=== PATIENT | female | born 1975 | race Hispanic/Latino ===

== ENCOUNTER 2018-01-14 15:34 | Emergency (ER) | payer SELFPAY ==
[~2018-01-14 15:34] MED LIST: FENO145T PO; SIMV20TA6 PO
[2018-01-14] MEDS ORDERED: SODIUM CHLORIDE 0.9% 1000ML 1,000 ML IV ONE (16:18)
[2018-01-14] MEDS ORDERED: KETOROLAC TROMETHAMINE 30MG/ML ONE (16:19)
[2018-01-14 16:31] LABS: BASOPHILS % (AUTO) 0.6 % (0.0-5.0); EOSINOPHILS % (AUTO) 2.4 % (0.0-8.0); HEMATOCRIT 34.6 % (36-48); LYMPHOCYTES % (AUTO) 33.8 % (21.0-51.0); MEAN CORPUSCULAR HEMOGLOBIN 29.1 pg (27.0-33.0); MEAN CORPUSCULAR HGB CONC 34.7 g/dL (32.0-36.0); MEAN CORPUSCULAR VOLUME 83.9 fL (79-99); MONOCYTES % (AUTO) 6.6 % (3.0-13.0); NEUTROPHILS % (AUTO) 56.6 % (40.0-77.0); PLATELET COUNT (AUTO) 310 K/uL (130-400); RED BLOOD CELL COUNT(AUTO) 4.12 MIL/uL (4.00-5.50); RED CELL DISTRIBUTION WIDTH 14.8 % (11.0-15.5); WHITE BLOOD COUNT (AUTO) 9.8 K/uL (4.8-10.8)
[2018-01-14 16:32] LABS: APPEARANCE,URINE Clear (CLEAR); BILIRUBIN,URINE Negative (NEGATIVE); COLOR,URINE Yellow (YELLOW); GLUCOSE, URINE (UA) Negative (NEGATIVE); HCG,QUAL RESULT NEGATIVE (NEGATIVE); KETONES,URINE Negative (NEGATIVE); LEUKOCYTE ESTERASE ,URINE Negative (NEGATIVE); NITRATE,URINE Negative (NEGATIVE); OCCULT BLOOD,URINE Negative (NEGATIVE); PH,URINE 5.5 (5.0-8.0); PROTEIN,URINE Negative (NEGATIVE); UROBILINOGEN,URINE 0.2 mg/dL (0.2-1.0)
[2018-01-14 16:39] LABS: CREATININE 0.8 mg/dL (0.5-1.5); POTASSIUM 3.6 mmol/L (3.5-5.1)
[2018-01-14 16:44] LABS: ALBUMIN 3.4 g/dL (3.5-5.0); BILIRUBIN,TOTAL 0.2 mg/dL (0.2-1.0); TOTAL PROTEIN, SERUM 7.3 g/dL (6.0-8.3)
[2018-01-14] MEDS ORDERED: CEFTRIAXONE SODIUM 500 MG VIAL ONE (17:53)
[2018-01-14] MEDS ORDERED: AZITHROMYCIN 250 MG TABLET PO ONE (17:54)
== END 2018-01-14 18:55 | disposition home or self-care (01) ==
LOC: EDH 15:34
DX: N73.9 Female pelvic inflammatory disease, unspecified (principal); K21.9 Gastro-esophageal reflux disease without esophagitis; Z72.0 Tobacco use
CPT/HCPCS: 36415; 76856; 80053; 81003; 81025; 83690; 85025; 87486; 87797; 96372; 96374; 99285; J0696; J1885; J7030

== ENCOUNTER 2018-01-24 08:34 | Emergency (ER) | payer OTHER ==
[2018-01-24] MEDS ORDERED: CLINDAMYCIN HCL 150 MG CAP ONE (08:50)
== END 2018-01-24 09:22 | disposition home or self-care (01) ==
LOC: EDH 08:34
DX: K04.7 Periapical abscess without sinus (principal); K21.9 Gastro-esophageal reflux disease without esophagitis; Z72.0 Tobacco use

== ENCOUNTER 2021-07-19 07:35 | Emergency (ER) | payer OTHER ==
[~2021-07-19] VITALS: Ht 165.1 cm; Wt 77.6 kg
[~2021-07-19 07:35] MED LIST changes: +SIMV-43 PO; -SIMV20TA6 PO
[2021-07-19] MEDS ORDERED: TETRACAINE HCL 0.5% 4 ML OPHTH SOLN ONE (07:55)
[2021-07-19] MEDS ORDERED: TOBR5DRO7 OP (08:59)
[2021-07-19] MEDS ORDERED: IBUP-2070 PO (08:59)
[2021-07-19 09:00] VITALS: BP 120/78
== END 2021-07-19 09:07 | disposition home or self-care (01) ==
LOC: EDH 07:35
DX: S05.01XA Injury of conjunctiva and corneal abrasion without foreign body, right eye, initial encounter (principal); Z79.899 Other long term (current) drug therapy; Z90.49 Acquired absence of other specified parts of digestive tract; X58.XXXA Exposure to other specified factors, initial encounter; Y93.89 Activity, other specified; Y92.89 Other specified places as the place of occurrence of the external cause; Y99.8 Other external cause status

== ENCOUNTER 2022-04-18 06:38 | Inpatient (IN) | payer OTHER ==
[2022-04-18] VITALS (9 sets, daily range): BP systolic 87–133; BP diastolic 53–84
[~2022-04-18] VITALS: Ht 160 cm; Wt 79.4 kg
[~2022-04-18 06:38] MED LIST changes: +IBUP-2070 PO; +TOBR5DRO7 OP
[2022-04-18] MEDS ORDERED: ONDANSETRON 4MG INJ ONE (06:42)
[2022-04-18] MEDS ORDERED: MORPHINE 4 MG SYG ONE (06:42)
[2022-04-18] MEDS ORDERED: KETOROLAC 15MG/ML VIAL (15MG/ML) IV ONE (07:00)
[2022-04-18] MEDS ORDERED: ONDANSETRON 4MG INJ IVP ONE (07:00)
[2022-04-18] MEDS ORDERED: MORPHINE 4 MG SYG IVP ONE ×2 (07:00→09:00)
[2022-04-18 07:02] LABS: BASOPHILS % (AUTO) 0.4 % (0.0-5.0); EOSINOPHILS % (AUTO) 2.2 % (0.0-8.0); HEMATOCRIT 43.4 % (36-48); MEAN CORPUSCULAR HEMOGLOBIN 33.1 pg (27.0-33.0); MEAN CORPUSCULAR HGB CONC 37.3 g/dL (32.0-36.0); MEAN CORPUSCULAR VOLUME 88.6 fL (79-99); MONOCYTES % (AUTO) 3.3 % (3.0-13.0); NEUTROPHILS % (AUTO) 72.6 % (40.0-77.0); PLATELET COUNT (AUTO) 350 K/uL (130-400); RED CELL DISTRIBUTION WIDTH 12.7 % (11.0-15.5); WHITE BLOOD COUNT (AUTO) 14.7 K/uL (4.8-10.8)
[2022-04-18 07:22] LABS: POTASSIUM 3.5 mmol/L (3.5-5.1)
[2022-04-18 07:48] LABS: ABG BASE EXCESS -2.8 mmol/L (-2.0-3.0); ABG HCO3 21.1 mmol/L (21.0-28.0); ABG OXYGEN SATURATION 94.7 % (95.0-99.0); ABG PCO2 34 mmHg (32-45)
[2022-04-18] MEDS ORDERED: 0.9%NACL 1000ML 1,000 ML IV ONE (08:08)
[2022-04-18 08:29] LABS: CREATININE 0.8 mg/dL (0.5-1.5)
[2022-04-18 08:30] LABS: TOTAL PROTEIN, SERUM 8.1 g/dL (6.0-8.3)
[2022-04-18] MEDS ORDERED: INSULIN REGULAR, HUMAN 3ML 100 UNIT in 0.9%NACL 100ML 99 ML IV SCH ×2 (11:30)
[2022-04-18] MEDS ORDERED: 0.9%NACL 1000ML 1,000 ML IV SCH (11:30)
[2022-04-18] MEDS ORDERED: INSULIN REGULAR, HUMAN 3ML 100 UNIT in 0.9%NACL 100ML 99 ML IV PRN ×2 (12:00)
[2022-04-18] MEDS: MORPHINE 2 MG SYG IVP PRN ×2 (12:03→16:12)
[2022-04-18] MEDS ORDERED: PHARMACY COMMUNICATION MISC SCH (13:30)
[2022-04-18] MEDS ORDERED: SODIUM BICARB 8.4% 50ML SYRINGE IVP SCH (13:30)
[2022-04-18] MEDS ORDERED: METF-444 PO (13:55)
[2022-04-18] MEDS ORDERED: CAPT25TA3 PO (13:55)
[2022-04-18] MEDS: [UNRECOGNIZED DRUG - MIXTURE] IVP SCH ×2 (14:07→20:17)
[2022-04-18] MEDS: DEXTROSE 10%-WATER 1,000 ML IV SCH ×2 (14:20→18:42)
[2022-04-18 17:12] LABS: APPEARANCE,URINE CLEAR (CLEAR); BILIRUBIN,URINE NEGATIVE (NEGATIVE); COLOR,URINE YELLOW (YELLOW); GLUCOSE, URINE (UA) 500 mg/dL (NEGATIVE); KETONES,URINE 40 mg/dL (NEGATIVE); LEUKOCYTE ESTERASE ,URINE NEGATIVE (NEGATIVE); NITRATE,URINE NEGATIVE (NEGATIVE); OCCULT BLOOD,URINE NEGATIVE (NEGATIVE); PROTEIN,URINE TRACE mg/dL (NEGATIVE); UROBILINOGEN,URINE 0.2 mg/dL (0.2-1.0)
[2022-04-18 17:22] LABS: HCG,QUALITATIVE URINE NEGATIVE (NEGATIVE)
[2022-04-18 17:23] LABS: BACTERIA,URINE Few /HPF (None Seen); RBC,URINE 0-1 /HPF (0-1)
[2022-04-18 17:24] LABS: MUCUS,URINE Moderate LPF (None Seen); SQUAMOUS EPITHELIAL CELL,UR Moderate /HPF (0-2)
[2022-04-18 18:32] LABS: CREATININE 0.8 mg/dL (0.5-1.5)
[2022-04-18] MEDS: HYDROMORPHONE 1 MG INJ IVP PRN ×2 (18:57→23:39)
[2022-04-18] MEDS: FAMOTIDINE 20MG VIAL IV SCH (19:52)
[2022-04-18] MEDS: ATORVASTATIN 40 MG TABLET PO SCH (19:53)
[2022-04-18] MEDS: FENOFIBRATE NANOCRYSTALLIZED 145 MG TAB PO SCH (20:17)
[2022-04-18] MEDS: INSULIN REGULAR, HUMAN 3ML 100 UNIT in 0.9%NACL 100ML 99 ML IV SCH ×2 (22:27)
[2022-04-18] MEDS: ZOSYN 3.375GM +NS 50ML IV SCH (23:39)
[2022-04-18 23:47] LABS: CREATININE 1.4 mg/dL (0.5-1.5)
[2022-04-19] VITALS (41 sets, daily range): BP systolic 75–126; BP diastolic 43–84
[2022-04-19] MEDS ORDERED: NOREPINEPHRIN 4MG/NS 250ML 250 ML IV SCH
[2022-04-19] MEDS: LIDOCAINE HCL-MPF 1% 2ML VIAL IV PRN ×3 (00:23→18:12)
[2022-04-19] MEDS: POTASSIUM CHLORIDE 20MEQ/100ML 100 ML IV PRN ×4 (00:33→18:12)
[2022-04-19] MEDS: ACETAMINOPHEN 325 MG TAB PO PRN ×2 (01:06→16:32)
[2022-04-19 03:43] LABS: BASOPHILS % (AUTO) 0.4 % (0.0-5.0); EOSINOPHILS % (AUTO) 0.6 % (0.0-8.0); HEMATOCRIT 37.7 % (36-48); LYMPHOCYTES % (AUTO) 19.2 % (21.0-51.0); MEAN CORPUSCULAR HEMOGLOBIN 29.9 pg (27.0-33.0); MEAN CORPUSCULAR HGB CONC 34.2 g/dL (32.0-36.0); MEAN CORPUSCULAR VOLUME 87.3 fL (79-99); MONOCYTES % (AUTO) 4.7 % (3.0-13.0); NEUTROPHILS % (AUTO) 74.8 % (40.0-77.0); PLATELET COUNT (AUTO) 292 K/uL (130-400); RED BLOOD CELL COUNT(AUTO) 4.32 MIL/uL (4.00-5.50); WHITE BLOOD COUNT (AUTO) 10.3 K/uL (4.8-10.8)
[2022-04-19 04:12] LABS: ALBUMIN 2.5 g/dL (3.5-5.0); CREATININE 1.8 mg/dL (0.5-1.5); POTASSIUM 3.6 mmol/L (3.5-5.1); TOTAL PROTEIN, SERUM 6.2 g/dL (6.0-8.3)
[2022-04-19 04:56] LABS: BILIRUBIN,DIRECT 0.2 mg/dL (0.0-0.3)
[2022-04-19] MEDS: ZOSYN 3.375GM +NS 50ML IV SCH ×2 (06:30→13:31)
[2022-04-19] MEDS: FAMOTIDINE 20MG VIAL IV SCH (08:29)
[2022-04-19] MEDS: ENOXAPARIN SODIUM 30 MG/0.3 ML SQ SCH (08:30)
[2022-04-19] MEDS ORDERED: 0.9%NACL 1000ML 1,000 ML IV SCH ×2 (10:00→11:30)
[2022-04-19] MEDS: DEXTROSE 10%-WATER 1,000 ML IV SCH ×2 (10:03→19:31)
[2022-04-19 11:03] LABS: CREATININE 2.4 mg/dL (0.5-1.5)
[2022-04-19 11:46] LABS: POTASSIUM 2.9 mmol/L (3.5-5.1)
[2022-04-19] MEDS ORDERED: MAGNESIUM 2GM PREMIX 50ML 50 ML IV ONE (11:58)
[2022-04-19] MEDS: POTASSIUM CHLORIDE 10MEQ/100ML 100 ML IV PRN (11:58)
[2022-04-19] MEDS: MAGNESIUM 2GM PREMIX 50ML 50 ML IV PRN ×2 (12:00→13:29)
[2022-04-19] MEDS: HYDROMORPHONE 1 MG INJ IVP PRN ×3 (12:03→23:48)
[2022-04-19] MEDS ORDERED: RENAL DOSE IV PRN (12:30)
[2022-04-19] MEDS: 0.9%NACL 1000ML 1,000 ML IV SCH ×3 (13:29→22:50)
[2022-04-19 17:45] LABS: CREATININE 2.5 mg/dL (0.5-1.5); POTASSIUM 3.3 mmol/L (3.5-5.1)
[2022-04-19] MEDS: INSULIN REGULAR, HUMAN 3ML 100 UNIT in 0.9%NACL 100ML 99 ML IV SCH ×2 (18:11)
[2022-04-19] MEDS: ATORVASTATIN 40 MG TABLET PO SCH ×2 (20:50→21:09)
[2022-04-19] MEDS: FENOFIBRATE NANOCRYSTALLIZED 145 MG TAB PO SCH ×2 (20:51→21:10)
[2022-04-19 23:16] LABS: CREATININE 2.6 mg/dL (0.5-1.5); MAGNESIUM 2.1 mg/dL (1.80-2.40); POTASSIUM 3.1 mmol/L (3.5-5.1)
[2022-04-20] VITALS (35 sets, daily range): BP systolic 100–148; BP diastolic 51–97
[2022-04-20] MEDS: LIDOCAINE HCL-MPF 1% 2ML VIAL IV PRN ×5 (00:01→13:19)
[2022-04-20] MEDS: POTASSIUM CHLORIDE 10MEQ/100ML 100 ML IV PRN ×3 (00:01→05:59)
[2022-04-20] MEDS: ZOSYN 3.375GM +NS 50ML IV SCH ×2 (00:33→12:11)
[2022-04-20] MEDS: 0.9%NACL 1000ML 1,000 ML IV SCH ×4 (03:29→17:36)
[2022-04-20] MEDS: DEXTROSE 10%-WATER 1,000 ML IV SCH (03:30)
[2022-04-20] MEDS: INSULIN REGULAR, HUMAN 3ML 100 UNIT in 0.9%NACL 100ML 99 ML IV SCH ×2 (03:48)
[2022-04-20 05:14] LABS: BASOPHILS % (AUTO) 0.3 % (0.0-5.0); EOSINOPHILS % (AUTO) 2.4 % (0.0-8.0); HEMATOCRIT 31.1 % (36-48); LYMPHOCYTES % (AUTO) 13.8 % (21.0-51.0); MEAN CORPUSCULAR HEMOGLOBIN 29.8 pg (27.0-33.0); MEAN CORPUSCULAR HGB CONC 33.8 g/dL (32.0-36.0); MEAN CORPUSCULAR VOLUME 88.4 fL (79-99); MONOCYTES % (AUTO) 6.2 % (3.0-13.0); NEUTROPHILS % (AUTO) 76.8 % (40.0-77.0); PLATELET COUNT (AUTO) 210 K/uL (130-400); RED BLOOD CELL COUNT(AUTO) 3.52 MIL/uL (4.00-5.50); RED CELL DISTRIBUTION WIDTH 13.6 % (11.0-15.5); WHITE BLOOD COUNT (AUTO) 10.5 K/uL (4.8-10.8)
[2022-04-20 05:24] LABS: CREATININE 2.5 mg/dL (0.5-1.5); PHOSPHORUS 2.4 mg/dL (2.5-4.9); POTASSIUM 3.2 mmol/L (3.5-5.1)
[2022-04-20] MEDS: ACETAMINOPHEN 325 MG TAB PO PRN ×3 (05:59→19:56)
[2022-04-20] MEDS: ENOXAPARIN SODIUM 30 MG/0.3 ML SQ SCH (08:16)
[2022-04-20] MEDS: POTASSIUM CHLORIDE 20MEQ/100ML 100 ML IV PRN ×2 (08:17→13:19)
[2022-04-20] MEDS: FAMOTIDINE 20MG VIAL IV SCH (08:17)
[2022-04-20 09:10] LABS: HEMOGLOBIN A1C 9.7 % (4.0-6.0)
[2022-04-20] MEDS: INSULIN HUMULIN R 100 UNIT/ML 3ML SQ SCH ×3 (11:17→20:53)
[2022-04-20] MEDS: HYDROMORPHONE 1 MG INJ IVP PRN ×4 (12:11→23:50)
[2022-04-20 12:15] LABS: CREATININE 2.3 mg/dL (0.5-1.5); POTASSIUM 3.8 mmol/L (3.5-5.1)
[2022-04-20] MEDS ORDERED: GLUCAGON 1MG KIT 1 MG ML IM PRN (21:30)
[2022-04-20] MEDS ORDERED: DEXTROSE 50%-WATER 50 ML DISP.SYRIN IV PRN (21:30)
[2022-04-21] VITALS (21 sets, daily range): BP systolic 122–177; BP diastolic 75–107
[2022-04-21] MEDS: ZOSYN 3.375GM +NS 50ML IV SCH ×2 (00:07→11:40)
[2022-04-21] MEDS: 0.9%NACL 1000ML 1,000 ML IV SCH ×3 (00:11→21:54)
[2022-04-21 03:37] LABS: BASOPHILS % (AUTO) 0.4 % (0.0-5.0); EOSINOPHILS % (AUTO) 1.7 % (0.0-8.0); HEMATOCRIT 32.1 % (36-48); LYMPHOCYTES % (AUTO) 11.3 % (21.0-51.0); MEAN CORPUSCULAR HEMOGLOBIN 30.1 pg (27.0-33.0); MEAN CORPUSCULAR HGB CONC 33.3 g/dL (32.0-36.0); MEAN CORPUSCULAR VOLUME 90.2 fL (79-99); MONOCYTES % (AUTO) 6.9 % (3.0-13.0); NEUTROPHILS % (AUTO) 79.2 % (40.0-77.0); PLATELET COUNT (AUTO) 255 K/uL (130-400); RED BLOOD CELL COUNT(AUTO) 3.56 MIL/uL (4.00-5.50); RED CELL DISTRIBUTION WIDTH 13.6 % (11.0-15.5); WHITE BLOOD COUNT (AUTO) 11.4 K/uL (4.8-10.8)
[2022-04-21] MEDS: ACETAMINOPHEN 325 MG TAB PO PRN (03:44)
[2022-04-21 03:45] LABS: ALBUMIN 2.1 g/dL (3.5-5.0); CREATININE 1.9 mg/dL (0.5-1.5); MAGNESIUM 1.8 mg/dL (1.80-2.40); PHOSPHORUS 3.1 mg/dL (2.5-4.9); POTASSIUM 4.1 mmol/L (3.5-5.1)
[2022-04-21] MEDS: HYDROMORPHONE 1 MG INJ IVP PRN ×6 (04:38→20:48)
[2022-04-21 04:53] LABS: APPEARANCE,URINE CLEAR (CLEAR); BILIRUBIN,URINE NEGATIVE (NEGATIVE); COLOR,URINE YELLOW (YELLOW); GLUCOSE, URINE (UA) NEGATIVE (NEGATIVE); KETONES,URINE NEGATIVE (NEGATIVE); LEUKOCYTE ESTERASE ,URINE NEGATIVE (NEGATIVE); NITRATE,URINE NEGATIVE (NEGATIVE); OCCULT BLOOD,URINE SMALL (NEGATIVE); PROTEIN,URINE NEGATIVE (NEGATIVE); UROBILINOGEN,URINE 0.2 mg/dL (0.2-1.0)
[2022-04-21 05:11] LABS: BACTERIA,URINE None Seen /HPF (None Seen); RBC,URINE 0-1 /HPF (0-1); SQUAMOUS EPITHELIAL CELL,UR Rare /HPF (0-2); WBC,URINE None Seen /HPF (0-1)
[2022-04-21] MEDS: MAGNESIUM 2GM PREMIX 50ML 50 ML IV PRN (06:30)
[2022-04-21] MEDS: INSULIN HUMULIN R 100 UNIT/ML 3ML SQ SCH ×4 (06:30→20:58)
[2022-04-21] MEDS: FAMOTIDINE 20MG VIAL IV SCH (08:02)
[2022-04-21] MEDS: ENOXAPARIN SODIUM 30 MG/0.3 ML SQ SCH (08:03)
[2022-04-21] MEDS: ATORVASTATIN 40 MG TABLET PO SCH (20:23)
[2022-04-21] MEDS: FENOFIBRATE NANOCRYSTALLIZED 145 MG TAB PO SCH (20:26)
[2022-04-21] MEDS: MORPHINE 2 MG SYG IVP PRN (23:02)
[2022-04-22] VITALS (8 sets, daily range): BP systolic 120–161; BP diastolic 79–108
[2022-04-22] MEDS: ZOSYN 3.375GM +NS 50ML IV SCH ×2 (00:58→12:32)
[2022-04-22 03:34] LABS: BASOPHILS % (AUTO) 0.3 % (0.0-5.0); EOSINOPHILS % (AUTO) 1.6 % (0.0-8.0); HEMATOCRIT 37.1 % (36-48); LYMPHOCYTES % (AUTO) 14.7 % (21.0-51.0); MEAN CORPUSCULAR HEMOGLOBIN 29.7 pg (27.0-33.0); MEAN CORPUSCULAR HGB CONC 32.9 g/dL (32.0-36.0); MEAN CORPUSCULAR VOLUME 90.3 fL (79-99); MONOCYTES % (AUTO) 8.8 % (3.0-13.0); NEUTROPHILS % (AUTO) 74.2 % (40.0-77.0); PLATELET COUNT (AUTO) 320 K/uL (130-400); RED BLOOD CELL COUNT(AUTO) 4.11 MIL/uL (4.00-5.50); RED CELL DISTRIBUTION WIDTH 13.4 % (11.0-15.5); WHITE BLOOD COUNT (AUTO) 11.5 K/uL (4.8-10.8)
[2022-04-22 03:46] LABS: CREATININE 1.5 mg/dL (0.5-1.5); PHOSPHORUS 3.3 mg/dL (2.5-4.9); POTASSIUM 3.3 mmol/L (3.5-5.1)
[2022-04-22] MEDS: INSULIN HUMULIN R 100 UNIT/ML 3ML SQ SCH ×4 (06:14→21:00)
[2022-04-22] MEDS: 0.9%NACL 1000ML 1,000 ML IV SCH ×2 (08:00→20:41)
[2022-04-22] MEDS: FAMOTIDINE 20MG VIAL IV SCH (09:28)
[2022-04-22] MEDS: ENOXAPARIN SODIUM 30 MG/0.3 ML SQ SCH (09:51)
[2022-04-22] MEDS: HYDROMORPHONE 1 MG INJ IVP PRN ×3 (10:01→20:41)
[2022-04-22] MEDS: MORPHINE 2 MG SYG IVP PRN (13:44)
[2022-04-22] MEDS: ACETAMINOPHEN 325 MG TAB PO PRN (16:17)
[2022-04-22] MEDS: FENOFIBRATE NANOCRYSTALLIZED 145 MG TAB PO SCH (20:40)
[2022-04-22] MEDS: ATORVASTATIN 40 MG TABLET PO SCH (20:40)
[2022-04-23] VITALS: BP 153/93
[2022-04-23] MEDS: ZOSYN 3.375GM +NS 50ML IV SCH ×2 (01:00→11:57)
[2022-04-23 04:00] VITALS: BP 158/93
[2022-04-23] MEDS: MORPHINE 2 MG SYG IVP PRN (04:08)
[2022-04-23 06:14] LABS: BASOPHILS % (AUTO) 0.3 % (0.0-5.0); EOSINOPHILS % (AUTO) 1.8 % (0.0-8.0); LYMPHOCYTES % (AUTO) 11.5 % (21.0-51.0); MEAN CORPUSCULAR HEMOGLOBIN 29.2 pg (27.0-33.0); MEAN CORPUSCULAR HGB CONC 33.3 g/dL (32.0-36.0); MEAN CORPUSCULAR VOLUME 87.7 fL (79-99); MONOCYTES % (AUTO) 9.6 % (3.0-13.0); NEUTROPHILS % (AUTO) 75.6 % (40.0-77.0); PLATELET COUNT (AUTO) 320 K/uL (130-400); RED BLOOD CELL COUNT(AUTO) 3.42 MIL/uL (4.00-5.50); RED CELL DISTRIBUTION WIDTH 13.1 % (11.0-15.5); WHITE BLOOD COUNT (AUTO) 11.8 K/uL (4.8-10.8)
[2022-04-23] MEDS: INSULIN HUMULIN R 100 UNIT/ML 3ML SQ SCH ×4 (06:18→20:29)
[2022-04-23 06:33] LABS: ALBUMIN 2.1 g/dL (3.5-5.0); CREATININE 1.2 mg/dL (0.5-1.5); TOTAL PROTEIN, SERUM 6.4 g/dL (6.0-8.3)
[2022-04-23 06:49] LABS: POTASSIUM 2.8 mmol/L (3.5-5.1)
[2022-04-23 07:25] VITALS: BP 153/96
[2022-04-23 08:13] LABS: CRP QUANTITATIVE 246.4 mg/L (0.00-9.0)
[2022-04-23] MEDS: LISINOPRIL 5 MG TABLET PO SCH (09:58)
[2022-04-23] MEDS: POTASSIUM CHLORIDE 10MEQ SR TAB PO SCH (09:59)
[2022-04-23] MEDS: HYDROMORPHONE 1 MG INJ IVP PRN ×2 (10:00→15:32)
[2022-04-23] MEDS: FAMOTIDINE 20MG VIAL IV SCH (10:00)
[2022-04-23] MEDS: ENOXAPARIN SODIUM 30 MG/0.3 ML SQ SCH (10:02)
[2022-04-23 11:25] VITALS: BP 167/98
[2022-04-23] MEDS ORDERED: NS-20 MEQ KCL 1000ML 1,000 ML IV SCH (13:00)
[2022-04-23] MEDS: 0.9%NACL 1000ML 1,000 ML IV SCH ×3 (13:09→20:29)
[2022-04-23 15:25] VITALS: BP 155/90
[2022-04-23 20:00] VITALS: BP 158/101
[2022-04-23] MEDS: FENOFIBRATE NANOCRYSTALLIZED 145 MG TAB PO SCH (20:28)
[2022-04-23] MEDS: ATORVASTATIN 40 MG TABLET PO SCH (20:28)
[2022-04-23] MEDS: ACETAMINOPHEN 325 MG TAB PO PRN (20:28)
[2022-04-23] MEDS ORDERED: HYDROMORPHONE 0.5 MG SYG (0.5MG/0.5ML) IVP ONE (22:00)
[2022-04-24] VITALS: BP 165/105
[2022-04-24] MEDS: ZOSYN 3.375GM +NS 50ML IV SCH ×2 (00:22→13:20)
[2022-04-24] MEDS: POTASSIUM CHLORIDE 10MEQ SR TAB PO SCH ×2 (01:31→05:06)
[2022-04-24] MEDS ORDERED: POTASSIUM CHLORIDE 20MEQ/100ML 100 ML IV PRN (02:00)
[2022-04-24] MEDS ORDERED: POTASSIUM CHLORIDE 10% ELIXIR 20 MEQ/15 ML UDCUP PO PRN (02:00)
[2022-04-24] MEDS ORDERED: LIDOCAINE HCL-MPF 1% 2ML VIAL IV PRN (02:00)
[2022-04-24 04:00] VITALS: BP 167/112
[2022-04-24 04:11] LABS: BASOPHILS % (AUTO) 0.4 % (0.0-5.0); EOSINOPHILS % (AUTO) 2.1 % (0.0-8.0); HEMATOCRIT 32.3 % (36-48); LYMPHOCYTES % (AUTO) 10.8 % (21.0-51.0); MEAN CORPUSCULAR HEMOGLOBIN 28.8 pg (27.0-33.0); MEAN CORPUSCULAR HGB CONC 32.5 g/dL (32.0-36.0); MEAN CORPUSCULAR VOLUME 88.7 fL (79-99); MONOCYTES % (AUTO) 9.7 % (3.0-13.0); NEUTROPHILS % (AUTO) 75.5 % (40.0-77.0); PLATELET COUNT (AUTO) 372 K/uL (130-400); RED BLOOD CELL COUNT(AUTO) 3.64 MIL/uL (4.00-5.50); RED CELL DISTRIBUTION WIDTH 12.9 % (11.0-15.5); WHITE BLOOD COUNT (AUTO) 12.4 K/uL (4.8-10.8)
[2022-04-24 04:51] LABS: ALBUMIN 2.2 g/dL (3.5-5.0); CREATININE 1.1 mg/dL (0.5-1.5); MAGNESIUM 1.5 mg/dL (1.80-2.40); TOTAL PROTEIN, SERUM 6.7 g/dL (6.0-8.3)
[2022-04-24 04:55] LABS: POTASSIUM 2.6 mmol/L (3.5-5.1)
[2022-04-24] MEDS: MAGNESIUM 2GM PREMIX 50ML 50 ML IV PRN (05:05)
[2022-04-24 05:16] LABS: CRP QUANTITATIVE 243.5 mg/L (0.00-9.0)
[2022-04-24] MEDS ORDERED: MORPHINE 2 MG SYG IVP PRN (05:30)
[2022-04-24 05:34] LABS: ERYTHROCYTE SEDIMENTATION RATE 121 MM/HR (0-20)
[2022-04-24] MEDS: INSULIN HUMULIN R 100 UNIT/ML 3ML SQ SCH ×4 (05:44→21:25)
[2022-04-24] MEDS: KCL 20 MEQ ERTAB PO PRN ×2 (06:03→07:43)
[2022-04-24] MEDS: LISINOPRIL 5 MG TABLET PO SCH (07:43)
[2022-04-24] MEDS: AMLODIPINE 5 MG TAB PO SCH (07:43)
[2022-04-24] MEDS: FAMOTIDINE 20MG VIAL IV SCH (07:44)
[2022-04-24] MEDS: ACETAMINOPHEN 325 MG TAB PO PRN (07:45)
[2022-04-24] MEDS: ENOXAPARIN SODIUM 30 MG/0.3 ML SQ SCH (07:46)
[2022-04-24 08:00] VITALS: BP 172/105
[2022-04-24 12:00] VITALS: BP 161/102
[2022-04-24] MEDS ORDERED: IOHEXOL 350 MG/ML 100ML INFUS..BTL IV ONE (12:03)
[2022-04-24] MEDS: MEROPENEM 1 GM VIAL IVP SCH ×2 (16:00→23:18)
[2022-04-24] MEDS: 0.9%NACL 1000ML 1,000 ML IV SCH (18:28)
[2022-04-24 20:37] VITALS: BP 165/96
[2022-04-24] MEDS: ATORVASTATIN 40 MG TABLET PO SCH (21:19)
[2022-04-24] MEDS: FENOFIBRATE NANOCRYSTALLIZED 145 MG TAB PO SCH (21:19)
[2022-04-25 00:23] VITALS: BP 154/97
[2022-04-25 04:21] LABS: BASOPHILS % (AUTO) 0.3 % (0.0-5.0); EOSINOPHILS % (AUTO) 2.5 % (0.0-8.0); HEMATOCRIT 30.3 % (36-48); LYMPHOCYTES % (AUTO) 13.6 % (21.0-51.0); MEAN CORPUSCULAR HEMOGLOBIN 29.4 pg (27.0-33.0); MEAN CORPUSCULAR VOLUME 89.1 fL (79-99); MONOCYTES % (AUTO) 8.1 % (3.0-13.0); NEUTROPHILS % (AUTO) 74.3 % (40.0-77.0); PLATELET COUNT (AUTO) 463 K/uL (130-400); WHITE BLOOD COUNT (AUTO) 14.7 K/uL (4.8-10.8)
[2022-04-25 04:31] LABS: ALBUMIN 2.3 g/dL (3.5-5.0); CREATININE 1.1 mg/dL (0.5-1.5); TOTAL PROTEIN, SERUM 7.2 g/dL (6.0-8.3)
[2022-04-25 04:36] LABS: POTASSIUM 2.9 mmol/L (3.5-5.1)
[2022-04-25] MEDS: 0.9%NACL 1000ML 1,000 ML IV SCH ×2 (04:49→05:53)
[2022-04-25] MEDS: POTASSIUM CHLORIDE 20MEQ/100ML 100 ML IV PRN (04:51)
[2022-04-25 05:22] VITALS: BP 151/92
[2022-04-25] MEDS: INSULIN HUMULIN R 100 UNIT/ML 3ML SQ SCH (06:32)
[2022-04-25] MEDS: POTASSIUM CHLORIDE 10MEQ SR TAB PO SCH (06:57)
[2022-04-25] MEDS ORDERED: METF-446 PO (07:02)
[2022-04-25] MEDS ORDERED: LISI5TAB21 PO (07:02)
[2022-04-25] MEDS ORDERED: ATOR40TA69 PO (07:02)
[2022-04-25] MEDS ORDERED: GLIM4TAB36 PO (07:02)
[2022-04-25] MEDS ORDERED: FENO145T PO (07:02)
[2022-04-25] MEDS ORDERED: AMLO5TAB4 PO (07:02)
[2022-04-25 08:12] VITALS: BP 143/93
[2022-04-25] MEDS: MEROPENEM 1 GM VIAL IVP SCH (09:07)
[2022-04-25] MEDS: FAMOTIDINE 20MG VIAL IV SCH (09:07)
[2022-04-25] MEDS: KCL 20 MEQ ERTAB PO PRN (09:08)
[2022-04-25] MEDS: ENOXAPARIN SODIUM 30 MG/0.3 ML SQ SCH (09:08)
[2022-04-25] MEDS: AMLODIPINE 5 MG TAB PO SCH (09:08)
[2022-04-25] MEDS: LISINOPRIL 5 MG TABLET PO SCH (09:08)
== END 2022-04-25 11:17 | disposition home or self-care (01) | DRG 439 ==
LOC: EDH 06:38 → EDHIP 06:39 → 2BH 13:43 → 4BH 04-22 03:30
PROVIDERS: ADMIT Hospitalist; ATTEND Hospitalist
DX: K85.80 Other acute pancreatitis without necrosis or infection (principal); E87.1 Hypo-osmolality and hyponatremia; N17.9 Acute kidney failure, unspecified; E87.2 Acidosis; Z20.822 Contact with and (suspected) exposure to COVID-19; E78.1 Pure hyperglyceridemia; E78.5 Hyperlipidemia, unspecified; E66.9 Obesity, unspecified; E11.65 Type 2 diabetes mellitus with hyperglycemia; E86.9 Volume depletion, unspecified; E87.8 Other disorders of electrolyte and fluid balance, not elsewhere classified; F10.10 Alcohol abuse, uncomplicated; I10 Essential (primary) hypertension; K86.1 Other chronic pancreatitis; Z79.84 Long term (current) use of oral hypoglycemic drugs; Z79.899 Other long term (current) drug therapy; Z82.49 Family history of ischemic heart disease and other diseases of the circulatory system; Z83.3 Family history of diabetes mellitus; Z91.14 Patient's other noncompliance with medication regimen; Z91.19 Patient's noncompliance with other medical treatment and regimen; Z68.31 Body mass index [BMI] 31.0-31.9, adult
CPT/HCPCS: 36415; 36600; 71045; 74170; 74176; 76770; 80048; 80053; 80061; 80076; 81001; 81025; 82010; 82150; 82435; 82803; 82947; 82948; 83036; 83605; 83690; 83735; 84100; 84132; 84145; 84295; 84478; 84484; 85018; 85025; 85651; 86140; 87040; 87088; 87635; 93005; 94660; 97039; G0378; J1170; J1650; J1815; J1885; J2185; J2270; J2405; J2543; J3475; J3480; J3490; J7030; Q9967

== ENCOUNTER 2024-03-23 11:33 | Emergency (ER) | payer OTHER ==
[~2024-03-23] VITALS: Ht 165.1 cm; Wt 77.6 kg
[~2024-03-23 11:33] MED LIST changes: +AMLO5TAB4 PO; +ATOR40TA69 PO; +GLIM4TAB36 PO; +HYDR-3421 PO; -IBUP-2070 PO; +LISI5TAB21 PO; +METF-446 PO; -SIMV-43 PO; -TOBR5DRO7 OP
[2024-03-23 11:45] VITALS: BP 145/91; PULSE 88; RESP 16; O2SAT 96
[2024-03-23] MEDS: HYDROCODONE/ACETAMINOPHEN 10/325 MG TAB PO ONE (12:00)
[2024-03-23] MEDS: ERYTHROMYCIN BASE 0.5% OPHTH OINT 1 GM TUBE ONE (12:04)
[2024-03-23] MEDS ORDERED: ACET-2079 PO (12:06)
[2024-03-23] MEDS ORDERED: [UNRECOGNIZED DRUG - OTHER] OD (12:06)
[2024-03-23] MEDS ORDERED: IBUP-2070 PO (12:06)
[2024-03-23] MEDS: TETRACAINE HCL 0.5% 4 ML OPHTH SOLN OD SCH (12:17)
[2024-03-23] MEDS: ERYTHROMYCIN BASE 0.5% OPHTH OINT 1 GM TUBE OD SCH (12:17)
[2024-03-23] MEDS: FLUORESCEIN SODIUM 1 STRIP STRIP OP SCH (12:18)
[2024-03-23] MEDS: TETRACAINE HCL 0.5% 4 ML OPHTH SOLN ONE (12:18)
[2024-03-23] MEDS: TETANUS/DIPHTHERIA TOXOID [ADULT] 0.5 ML VIAL IM ONE (12:30)
== END 2024-03-23 12:46 | disposition home or self-care (01) ==
LOC: EDH 11:33
DX: S05.01XA Injury of conjunctiva and corneal abrasion without foreign body, right eye, initial encounter (principal); I10 Essential (primary) hypertension; E11.9 Type 2 diabetes mellitus without complications; E78.00 Pure hypercholesterolemia, unspecified; Z79.84 Long term (current) use of oral hypoglycemic drugs; Z79.899 Other long term (current) drug therapy; Z98.890 Other specified postprocedural states; Z98.51 Tubal ligation status; X58.XXXA Exposure to other specified factors, initial encounter; Y93.89 Activity, other specified; Y92.89 Other specified places as the place of occurrence of the external cause; Y99.8 Other external cause status
CPT/HCPCS: 90471; 90714

== ENCOUNTER 2024-03-30 11:26 | Inpatient (IN) | payer SELFPAY ==
[~2024-03-30] VITALS: Ht 152.4 cm; Wt 73.0 kg
[~2024-03-30 11:26] MED LIST changes: +ACET-2079 PO; +IBUP-2070 PO; +[UNRECOGNIZED DRUG - OTHER] OD
[2024-03-30 11:57] LABS: BASOPHILS # (AUTO) 0.07 K/uL (0.00-0.20); BASOPHILS % (AUTO) 0.5 % (0.0-5.0); EOSINOPHILS % (AUTO) 2.9 % (0.0-8.0); HEMATOCRIT 38.3 % (36-48); IMMATURE GRANULOCYTE ABSOLUTE 0.07 K/uL (0-1); LYMPHOCYTES # (AUTO) 2.8 K/uL (1.0-4.8); LYMPHOCYTES % (AUTO) 20.8 % (21.0-51.0); MEAN CORPUSCULAR VOLUME 88.5 fL (79-99); MONOCYTES # (AUTO) 0.6 K/uL (0.1-1.0); MONOCYTES % (AUTO) 4.5 % (3.0-13.0); NEUTROPHILS # (AUTO) 9.6 K/uL (1.8-7.7); NEUTROPHILS % (AUTO) 70.8 % (40.0-77.0); PLATELET COUNT (AUTO) 344 K/uL (130-400); RED BLOOD CELL COUNT(AUTO) 4.33 MIL/uL (4.00-5.50); RED CELL DISTRIBUTION WIDTH 12.4 % (11.0-15.5); WHITE BLOOD COUNT (AUTO) 13.6 K/uL (4.8-10.8)
[2024-03-30 12:29] LABS: POTASSIUM 3.5 mmol/L (3.5-5.1)
[2024-03-30 13:09] LABS: MEAN CORPUSCULAR HEMOGLOBIN 31.3 pg (27.0-33.0); MEAN CORPUSCULAR HGB CONC 35.8 g/dL (32.0-36.0)
[2024-03-30 13:15] LABS: BAND NEUTROPHILS % (MANUAL) 6 % (0-2); BASOPHILS % (MANUAL) 2 % (0-2); EOSINOPHILS % (MANUAL) 2 % (1-6); LYMPHOCYTES % (MANUAL) 27 % (22-44); MAN.DIFF COMMENT-IMPRESSION MANUAL DIFFERENTIAL; MONOCYTES % (MANUAL) 3 % (2-9); PLATELET MORPHOLOGY COMMENT ADEQUATE; SEGMENTED NEUTROPHILS % 60 % (40-70); TOTAL CELLS COUNTED 100
[2024-03-30 13:16] LABS: WBC MORPHOLOGY CONSISTENT W/DIFF
[2024-03-30] MEDS: 0.9%NACL 1000ML 1,000 ML IV SCH ×2 (14:01→21:22)
[2024-03-30] MEDS: ONDANSETRON 4MG INJ IVP ONE (14:02)
[2024-03-30] MEDS: MORPHINE 4 MG SYG IVP ONE ×2 (14:02→21:14)
[2024-03-30 14:06] LABS: APPEARANCE,URINE CLEAR (CLEAR); BILIRUBIN,URINE NEGATIVE (NEGATIVE); COLOR,URINE LIGHT-YELLOW (YELLOW); GLUCOSE, URINE (UA) >=1000 mg/dL (NEGATIVE); KETONES,URINE 20 mg/dL (NEGATIVE); LEUKOCYTE ESTERASE ,URINE NEGATIVE Leu/uL (NEGATIVE); NITRATE,URINE NEGATIVE (NEGATIVE); PROTEIN,URINE 50 mg/dL (NEGATIVE); UROBILINOGEN,URINE 0.2 mg/dL (0.2-1.0)
[2024-03-30 14:08] LABS: ADD UA MICROSCOPIC YES
[2024-03-30 14:12] LABS: BACTERIA,URINE FEW /HPF (None Seen); MUCUS,URINE RARE LPF (None Seen); SQUAMOUS EPITHELIAL CELL,UR RARE /HPF (0-2)
[2024-03-30 14:16] LABS: ALBUMIN 3.7 g/dL (3.5-5.0); BILIRUBIN,TOTAL 0.4 mg/dL (0.2-1.0); CREATININE 0.7 mg/dL (0.5-1.0); TOTAL PROTEIN, SERUM 7.9 g/dL (6.0-8.3)
[2024-03-30] MEDS: 0.9%NACL 1000ML 2,000 ML IV ONE (17:06)
[2024-03-30] MEDS ORDERED: IOHEXOL-350 75 ML VIAL IV ONE (17:27)
[2024-03-30] MEDS ORDERED: INSULIN REGULAR, HUMAN 3ML 100 UNIT in 0.9%NACL 100ML 100 ML IV SCH (20:30)
[2024-03-30 20:45] LABS: POTASSIUM 3.5 mmol/L (3.5-5.1)
[2024-03-30] MEDS: 0.9%NACL 1000ML 1,000 ML IV ONE (20:45)
[2024-03-30] MEDS: POTASSIUM CHLORIDE 10MEQ/100ML 100 ML IV PRN (20:45)
[2024-03-30] MEDS: MORPHINE 2 MG SYG ONE (21:15)
[2024-03-30] MEDS: ONDANSETRON 4MG INJ IV ONE (21:15)
[2024-03-30] MEDS: HYDROMORPHONE 0.5 MG SYG (0.5MG/0.5ML) IVP ONE (21:30)
[2024-03-30 21:35] LABS: ABG BASE EXCESS -3.1 mmol/L (-2.0-3.0); ABG HCO3 20.2 mmol/L (21.0-28.0); ABG OXYGEN SATURATION 92.9 % (95.0-99.0); ABG PCO2 32 mmHg (32-45); ABG PH 7.424 (7.35-7.450); DEVICE COMMENT RR RN; VENT MODE, BG RA (ROOM AIR)
[2024-03-30] MEDS: INSULIN REGULAR, HUMAN 3ML 100 UNIT in 0.9%NACL 100ML 100 ML IV SCH (21:49)
[2024-03-30 21:52] LABS: CREATININE 0.5 mg/dL (0.5-1.0)
[2024-03-30] MEDS ORDERED: ONDANSETRON 4MG INJ IV PRN (22:00)
[2024-03-30] MEDS: D5W-1/2 NS/20MEQ KCL 1,000 ML IV SCH (22:12)
[2024-03-30 22:51] VITALS: PULSE 99; RESP 20; O2SAT 96
[2024-03-30 22:57] LABS: AMPHET/METH SCREEN,URINE NEGATIVE (NEGATIVE); BARBITURATE SCREEN, URINE NEGATIVE (NEGATIVE); BENZODIAZEPINES SCREEN,URINE NEGATIVE (NEGATIVE); CANNABINOID SCREEN,URINE NEGATIVE (NEGATIVE); COCAINE SCREEN,URINE POSITIVE (NEGATIVE); OPIATE SCREEN,URINE POSITIVE (NEGATIVE); PHENCYCLIDINE SCREEN,URINE NEGATIVE (NEGATIVE)
[2024-03-30 23:21] VITALS: BP 134/86; PULSE 99; RESP 28
[2024-03-30 23:36] VITALS: BP 127/80; PULSE 99; RESP 26
[2024-03-30 23:40] VITALS: O2SAT 96
[2024-03-30 23:51] VITALS: BP 133/85; PULSE 100; RESP 27
[2024-03-31] VITALS (49 sets, daily range): BP systolic 90–146; BP diastolic 43–84; PULSE 93–106; RESP 16–30; O2SAT 94–97
[2024-03-31] MEDS: POTASSIUM CHLORIDE 20MEQ/100ML 0 ML IV ONE (00:04)
[2024-03-31] MEDS: LEVOFLOXACIN 500 MG/D5W 100 ML 100 ML IV SCH (00:31)
[2024-03-31] MEDS: MORPHINE 2 MG SYG IVP PRN (00:41)
[2024-03-31 02:55] LABS: CREATININE 0.7 mg/dL (0.5-1.0)
[2024-03-31 03:58] LABS: BASOPHILS # (AUTO) 0.04 K/uL (0.00-0.20); BASOPHILS % (AUTO) 0.3 % (0.0-5.0); EOSINOPHILS # (AUTO) 0.05 K/uL (0.00-0.70); EOSINOPHILS % (AUTO) 0.4 % (0.0-8.0); HEMATOCRIT 37.4 % (36-48); IMMATURE GRANULOCYTE ABSOLUTE 0.04 K/uL (0-1); LYMPHOCYTES % (AUTO) 16.7 % (21.0-51.0); MEAN CORPUSCULAR HGB CONC 36.4 g/dL (32.0-36.0); MONOCYTES # (AUTO) 0.6 K/uL (0.1-1.0); MONOCYTES % (AUTO) 4.7 % (3.0-13.0); NEUTROPHILS # (AUTO) 9.3 K/uL (1.8-7.7); NEUTROPHILS % (AUTO) 77.6 % (40.0-77.0); PLATELET COUNT (AUTO) 318 K/uL (130-400); RED BLOOD CELL COUNT(AUTO) 4.25 MIL/uL (4.00-5.50); RED CELL DISTRIBUTION WIDTH 12.6 % (11.0-15.5)
[2024-03-31 05:21] LABS: ALBUMIN 2.8 g/dL (3.5-5.0); AMYLASE 116 U/L (25-115); BILIRUBIN,TOTAL 0.7 mg/dL (0.2-1.0); CARBON DIOXIDE 25 mmol/L (21-32); CHLORIDE 94 mmol/L (101-111); CREATININE 0.7 mg/dL (0.5-1.0); GLOMERULAR FILTR. RATE CALC 107 mL/min (>90); GLUCOSE,RANDOM 255 mg/dL (70-105); POTASSIUM 4.5 mmol/L (3.5-5.1); SODIUM SERUM 130 mmol/L (136-145); THYROID STIMULATING HORMONE 0.73 uIU/mL (0.36-3.74); TOTAL PROTEIN, SERUM 7.1 g/dL (6.0-8.3); UREA NITROGEN, BLOOD 6 mg/dL (7-18)
[2024-03-31 05:29] LABS: CHOLESTEROL 422 mg/dL (<200); HDL CHOLESTEROL 48 mg/dL (35-85); LDL DIRECT 66 mg/dL (0-99)
[2024-03-31] MEDS: MAGNESIUM 2GM PREMIX 50ML 50 ML IV SCH (05:41)
[2024-03-31 06:26] LABS: TRIGLYCERIDES 3983 mg/dL (30-200)
[2024-03-31 06:28] LABS: BILIRUBIN,DIRECT < 0.1 mg/dL (0.0-0.3)
[2024-03-31] MEDS ORDERED: CALCIUM GLUC 1GM/10ML VIAL IVPB SCH (06:30)
[2024-03-31] MEDS ORDERED: 0.9%NACL 50ML IV SCH (06:30)
[2024-03-31] MEDS ORDERED: DEXTROSE 50%-WATER 50 ML DISP.SYRIN IV PRN (06:30)
[2024-03-31] MEDS ORDERED: GLUCAGON 1MG KIT 1 MG ML IM PRN (06:30)
[2024-03-31 06:55] LABS: ALANINE AMINOTRANSFERASE 25 U/L (12-78); ASPARTATE AMINOTRANSFERASE 44 U/L (10-37)
[2024-03-31] MEDS: INSULIN HUMULIN R 100 UNIT/ML 3ML SQ SCH (07:25)
[2024-03-31] MEDS: INSULIN GLARGINE 100 UNITS/ML 10 ML VIAL SQ SCH (07:26)
[2024-03-31] MEDS: FAMOTIDINE 20MG VIAL IV SCH (08:58)
[2024-03-31] MEDS ORDERED: MAGNESIUM 2GM PREMIX 50ML 50 ML IV SCH (09:00)
[2024-03-31] MEDS ORDERED: MAGNESIUM 2GM PREMIX 50ML 50 ML IV PRN (09:00)
[2024-03-31] MEDS ORDERED: POTASSIUM CHLORIDE 10MEQ/100ML 100 ML IV PRN (09:00)
[2024-03-31] MEDS ORDERED: 0.9%NACL 1000ML 1,000 ML IV SCH (09:00)
[2024-03-31] MEDS ORDERED: INSULIN REGULAR, HUMAN 3ML 100 UNIT in 0.9%NACL 100ML 100 ML IV SCH (09:00)
[2024-03-31 10:11] LABS: CREATININE 0.6 mg/dL (0.5-1.0); POTASSIUM 4.1 mmol/L (3.5-5.1)
[2024-03-31] MEDS: 0.9%NACL 1000ML 1,000 ML IV SCH (10:35)
[2024-03-31 15:12] LABS: CREATININE 0.7 mg/dL (0.5-1.0); POTASSIUM 3.8 mmol/L (3.5-5.1)
[2024-03-31] MEDS: KETOROLAC 30MG VIAL (30MG/ML) IVP PRN (17:00)
[2024-03-31 17:43] LABS: INFLUENZA TYPE A Negative For Type A (NEGATIVE); INFLUENZA TYPE B Negative For Type B (NEGATIVE)
[2024-03-31 17:58] LABS: COVID19 (SARS ANTIGEN RAPID) PRESUMPTIVE NEGATIVE (NEGATIVE)
[2024-03-31] MEDS: D5W-1/2 NS/20MEQ KCL 1,000 ML IV SCH (19:46)
[2024-03-31] MEDS: INSULIN REGULAR, HUMAN 3ML 100 UNIT in 0.9%NACL 100ML 99 ML IV PRN (19:49)
[2024-03-31 21:37] LABS: CREATININE 1.1 mg/dL (0.5-1.0); POTASSIUM 4.3 mmol/L (3.5-5.1)
[2024-03-31] MEDS: NIACIN 500 MG SRTAB PO SCH (22:20)
[2024-03-31] MEDS: FISH OIL 1000 MG/CAP PO SCH (22:20)
[2024-03-31] MEDS: FENOFIBRATE NANOCRYSTALLIZED 145 MG TAB PO SCH (22:21)
[2024-04-01] VITALS (29 sets, daily range): BP systolic 90–139; BP diastolic 53–99; PULSE 78–111; RESP 19–36; TEMP 99.9; O2SAT 92–99
[2024-04-01] MEDS: METRONIDAZOLE 500MG/100ML BAG IV SCH (01:00)
[2024-04-01] MEDS: METRONIDAZOLE 500MG/100ML BAG 100 ML ONE (01:01)
[2024-04-01] MEDS: ACETAMINOPHEN 325 MG TAB PO PRN (01:02)
[2024-04-01 04:33] LABS: BASOPHILS # (AUTO) 0.04 K/uL (0.00-0.20); BASOPHILS % (AUTO) 0.5 % (0.0-5.0); EOSINOPHILS # (AUTO) 0.15 K/uL (0.00-0.70); EOSINOPHILS % (AUTO) 1.7 % (0.0-8.0); HEMATOCRIT 31.5 % (36-48); IMMATURE GRANULOCYTE ABSOLUTE 0.04 K/uL (0-1); LYMPHOCYTES # (AUTO) 1.7 K/uL (1.0-4.8); LYMPHOCYTES % (AUTO) 19.3 % (21.0-51.0); MEAN CORPUSCULAR HGB CONC 33.7 g/dL (32.0-36.0); MEAN CORPUSCULAR VOLUME 89.2 fL (79-99); MONOCYTES # (AUTO) 0.5 K/uL (0.1-1.0); MONOCYTES % (AUTO) 5.3 % (3.0-13.0); NEUTROPHILS # (AUTO) 6.4 K/uL (1.8-7.7); NEUTROPHILS % (AUTO) 72.7 % (40.0-77.0); PLATELET COUNT (AUTO) 224 K/uL (130-400); RED BLOOD CELL COUNT(AUTO) 3.53 MIL/uL (4.00-5.50); WHITE BLOOD COUNT (AUTO) 8.7 K/uL (4.8-10.8)
[2024-04-01 05:03] LABS: ALBUMIN 2.1 g/dL (3.5-5.0); BILIRUBIN,DIRECT 0.2 mg/dL (0.0-0.3); BILIRUBIN,TOTAL 0.7 mg/dL (0.2-1.0); CREATININE 0.8 mg/dL (0.5-1.0); MAGNESIUM 2.4 mg/dL (1.80-2.40); POTASSIUM 3.2 mmol/L (3.5-5.1); THYROID STIMULATING HORMONE 0.82 uIU/mL (0.36-3.74); TOTAL PROTEIN, SERUM 5.7 g/dL (6.0-8.3)
[2024-04-01] MEDS: ENOXAPARIN SODIUM 40 MG/0.4 ML SYRINGE SQ SCH (09:04)
[2024-04-01] MEDS: ZOSYN 3.375GM +NS 50ML IV SCH (11:37)
[2024-04-01 14:24] LABS: CREATININE 0.8 mg/dL (0.5-1.0); POTASSIUM 3.7 mmol/L (3.5-5.1)
[2024-04-01] MEDS: 0.9%NACL 1000ML 1,000 ML IV SCH (18:48)
[2024-04-01] MEDS: ATORVASTATIN 40 MG TABLET PO SCH (20:30)
[2024-04-01] MEDS: INSULIN HUMULIN R 100 UNIT/ML 3ML SQ SCH (21:00)
[2024-04-01 21:39] LABS: CREATININE 0.7 mg/dL (0.5-1.0); POTASSIUM 3.6 mmol/L (3.5-5.1)
[2024-04-02] VITALS (14 sets, daily range): BP systolic 99–145; BP diastolic 48–91; PULSE 81–104; RESP 16–27; O2SAT 96–99
[2024-04-02 04:09] LABS: BASOPHILS # (AUTO) 0.03 K/uL (0.00-0.20); BASOPHILS % (AUTO) 0.3 % (0.0-5.0); EOSINOPHILS # (AUTO) 0.21 K/uL (0.00-0.70); EOSINOPHILS % (AUTO) 1.9 % (0.0-8.0); HEMATOCRIT 28.5 % (36-48); IMMATURE GRANULOCYTE ABSOLUTE 0.09 K/uL (0-1); LYMPHOCYTES # (AUTO) 2.1 K/uL (1.0-4.8); LYMPHOCYTES % (AUTO) 19.1 % (21.0-51.0); MEAN CORPUSCULAR HEMOGLOBIN 29.2 pg (27.0-33.0); MEAN CORPUSCULAR VOLUME 88.5 fL (79-99); MONOCYTES # (AUTO) 0.5 K/uL (0.1-1.0); MONOCYTES % (AUTO) 4.7 % (3.0-13.0); NEUTROPHILS # (AUTO) 8.2 K/uL (1.8-7.7); NEUTROPHILS % (AUTO) 73.2 % (40.0-77.0); PLATELET COUNT (AUTO) 247 K/uL (130-400); RED BLOOD CELL COUNT(AUTO) 3.22 MIL/uL (4.00-5.50); RED CELL DISTRIBUTION WIDTH 13.3 % (11.0-15.5); WHITE BLOOD COUNT (AUTO) 11.2 K/uL (4.8-10.8)
[2024-04-02 04:27] LABS: BILIRUBIN,DIRECT 0.2 mg/dL (0.0-0.3); BILIRUBIN,TOTAL 0.8 mg/dL (0.2-1.0); TOTAL PROTEIN, SERUM 5.7 g/dL (6.0-8.3)
[2024-04-02 06:44] LABS: ABG BASE EXCESS -4.5 mmol/L (-2.0-3.0); ABG HCO3 18.2 mmol/L (21.0-28.0); ABG OXYGEN SATURATION 90.2 % (95.0-99.0); ABG PCO2 26 mmHg (32-45); ABG PH 7.457 (7.35-7.450); CARBON MONOXIDE 0; DEVICE COMMENT POLY RN LB; HHb 9.8; PO2, ARTERIAL BG 54.1 mmHg (83.0-108.0); VENT MODE, BG 2L NC (ROOM AIR)
[2024-04-02 08:54] LABS: CREATININE 0.8 mg/dL (0.5-1.0); MAGNESIUM 2.1 mg/dL (1.80-2.40); POTASSIUM 3.9 mmol/L (3.5-5.1)
[2024-04-02 16:24] LABS: CREATININE 0.7 mg/dL (0.5-1.0); POTASSIUM 3.3 mmol/L (3.5-5.1)
[2024-04-02] MEDS: KCL 20 MEQ ERTAB PO ONE (16:42)
[2024-04-02] MEDS ORDERED: POTASSIUM CHLORIDE 10% ELIXIR 20 MEQ/15 ML UDCUP PO PRN (17:00)
[2024-04-02] MEDS ORDERED: KCL 20 MEQ ERTAB PO PRN (17:00)
[2024-04-02] MEDS ORDERED: POTASSIUM CHLORIDE 20MEQ/100ML 100 ML IV PRN (17:00)
[2024-04-02] MEDS ORDERED: ZOSYN 3.375GM +NS 50ML IV SCH (21:00)
[2024-04-02] MEDS ORDERED: FAMOTIDINE 20MG TAB PO SCH (21:00)
== END 2024-04-02 19:10 | disposition left against medical advice (07) | DRG 637 ==
LOC: EDH 11:26 → EDHIP 11:27 → 2CV 23:34 → 2BH 03-31 10:26
PROVIDERS: ADMIT Internal Medicine; ATTEND Internal Medicine
DX: E11.10 Type 2 diabetes mellitus with ketoacidosis without coma (principal); K85.90 Acute pancreatitis without necrosis or infection, unspecified; E87.1 Hypo-osmolality and hyponatremia; K86.1 Other chronic pancreatitis; E78.00 Pure hypercholesterolemia, unspecified; I10 Essential (primary) hypertension; E78.1 Pure hyperglyceridemia; E87.5 Hyperkalemia; F10.20 Alcohol dependence, uncomplicated; F14.10 Cocaine abuse, uncomplicated; F17.210 Nicotine dependence, cigarettes, uncomplicated; F39 Unspecified mood [affective] disorder; Z82.49 Family history of ischemic heart disease and other diseases of the circulatory system; Z83.3 Family history of diabetes mellitus; Z91.199 Patient's noncompliance with other medical treatment and regimen due to unspecified reason; Z79.899 Other long term (current) drug therapy
CPT/HCPCS: 36415; 36600; 71045; 74177; 80048; 80053; 80061; 80076; 80305; 81001; 81025; 82010; 82150; 82435; 82803; 82947; 82948; 83036; 83605; 83615; 83690; 83735; 83880; 84132; 84295; 84443; 84478; 84484; 85018; 85025; 87040; 87426; 87804; 94660; G0378; J1650; J1815; J1885; J1956; J2270; J2405; J2543; J3475; J3480; J3490; J7030; Q9967

== ENCOUNTER 2024-09-21 19:06 | Inpatient (IN) | payer SELFPAY ==
[~2024-09-21] VITALS: Ht 165.1 cm; Wt 75.7 kg
--- NOTE | 2024-09-21 19:31 | NUR ---
SEPIS ALERT CALLED. NO RESPONSE
--- NOTE | 2024-09-21 19:31 | NUR ---
UA CUP PROVIDED
[2024-09-21 19:57] LABS: APPEARANCE,URINE CLEAR (CLEAR); BILIRUBIN,URINE NEGATIVE (NEGATIVE); COLOR,URINE LIGHT-YELLOW (YELLOW); GLUCOSE, URINE (UA) >=1000 mg/dL (NEGATIVE); KETONES,URINE 20 mg/dL (NEGATIVE); LEUKOCYTE ESTERASE ,URINE NEGATIVE Leu/uL (NEGATIVE); NITRATE,URINE NEGATIVE (NEGATIVE); PH,URINE 6.5 (5.0-8.0); PROTEIN,URINE 50 mg/dL (NEGATIVE); UROBILINOGEN,URINE 0.2 mg/dL (0.2-1.0)
[2024-09-21 19:58] LABS: ADD UA MICROSCOPIC YES
[2024-09-21 20:00] LABS: BACTERIA,URINE RARE /HPF (None Seen); MUCUS,URINE RARE LPF (None Seen); RBC,URINE 0-1 /HPF (0-1); SQUAMOUS EPITHELIAL CELL,UR FEW /HPF (0-2)
--- NOTE | 2024-09-21 20:05 | ERN ---
General Chief Complaint: Sepsis Stated Complaint: ABDOMINAL PAIN Time Seen by MD: 19:11 Source: patient History of Present Illness Initial Comments Patient is a 49-year-old female coming in with the abdominal pain. Patient states that the abdominal pain began three days ago. Long with the abdominal pain patient states he has been having nauseousness and vomiting for three days. SHe has felt chills and warmth as well Allergies: Coded Allergies: No Known Allergies (Verified Allergy, Unknown, 03/21/17) Home Meds Active Scripts Acetaminophen with Codeine (Acetaminophen-Cod #3 Tablet) 300 Mg-30 Mg Tablet, 1 EACH PO q8 hour PRN for severe pain, #10 TAB 0 Refills Prov:NADIYA ESPINO NP 03/23/24 Ibuprofen (Ibuprofen) 600 Mg Tablet, 600 MG PO Q6H PRN for PAIN, #20 TAB 0 Refills Prov:NADIYA ESPINO NP 03/23/24 [erythromycinopth .5%] No Conflict Check, 1 APPLIC OD q6 hr for 7 Days, #1 TUBE 0 Refills Prov:NADIYA ESPINO NP 03/23/24 Metformin HCl (Metformin HCl) 1,000 Mg Tablet, 1000 MG PO BID for 30 Days, #60 TAB Prov:AMAN ASHLEY NP 04/25/22 Glimepiride (Glimepiride) 4 Mg Tablet, 4 MG PO DAILY for 30 Days, #30 TAB Prov:AMAN ASHLEY NP 04/25/22 Lisinopril (Lisinopril) 5 Mg Tablet, 5 MG PO DAILY for 30 Days, #30 TAB Prov:AMAN ASHLEY NP 04/25/22 Fenofibrate Nanocrystallized (Tricor) 145 Mg Tablet, 145 MG PO HS for 30 Days, #30 TAB Prov:AMAN ASHLEY NP 04/25/22 Atorvastatin Calcium (LIPITOR) 40 Mg Tablet, 40 MG PO HS for 30 Days, #30 TAB Prov:AMAN ASHLEY NP 04/25/22 Amlodipine Besylate (Norvasc 5Mg Tab) 5 Mg Tablet, 10 MG PO DAILY for 30 Days, #30 TAB Prov:AMAN ASHLEY NP 04/25/22 Reported Medications Hydroxyzine HCl (Hydroxyzine HCl) 25 Mg Tablet, 25 MG PO TID PRN for ANXIETY/AGITATION, TAB 09/14/23 Past Medical History Past Medical History: Diabetes-Type II, High Cholesterol, Hypertension, Pancreatitis Medical History Other: HX OF HERNIA Past Surgical History: BTL, Social History Social History: Negative, Lives with family Female( History) History: Not Applicable : 3 Para: 3 Aborts: 0 ROS Dictation CONSTITUTIONAL: CHILLS, FEVER, NO WEAKNESS, NO DIAPHORESIS, NO MALAISE. HEAD/FACE: NO SIGNS OF TRAUMA. EENT: NO EYE PAIN, NO BLURRED VISION, NO TEARING, NO DOUBLE VISION, NO EAR PAIN, NO EAR DISCHARGE, NO NOSE PAIN, NO NASAL CONGESTION, NO THROAT PAIN, NO THROAT SWELLING, NO MOUTH PAIN. RESPIRATORY: NO COUGH, NO ORTHOPNEA, NO SOB, NO STRIDOR, NO WHEEZING. CARDIOVASCULAR: NO CHEST PAIN, NO EDEMA, NO PALPITATIONS, NO SYNCOPE. GASTROINTESTINAL/ABDOMINAL: NO ABDOMINAL PAIN, NO CONSTIPATION, NO DIARRHEA, NO NAUSEA, NO VOMITING. GENITOURINARY: NO ABNORMAL DISCHARGE, NO DYSURIA, NO FREQUENT URINATION, NO HEMATURIA. NO COMPLAINTS OF PAIN IN THE GENITALS. MUSCULOSKELETAL: NO BACK PAIN, NO GOUT, NO JOINT PAIN, NO JOINT SWELLING, NO MUSCLE PAIN, NO MUSCLE STIFFNESS, NO NECK PAIN. INTEGUMENTARY: NO CHANGE IN COLOR, NO CHANGE IN HAIR/NAILS, NO DRYNESS, NO LESION, NO LUMPS, NO RASH. NEUROLOGICAL/PSYCH: NO ANXIETY, NOT DEPRESSED, NO EMOTIONAL PROBLEM, NO HEADACHE, NO NUMBNESS, NO PRE-EXISTING DEFICIT, NO HISTORY OF SEIZURES, NO TREMORS, NO WEAKNESS. HEMATOLOGIC/LYMPHATIC: NOT ANEMIC, NO HISTORY OF BLOOD CLOTS, NO APPARENT BLEEDING, NO BRUISING, GLANDS NOT SWOLLEN. ALL SYSTEMS NEGATIVE, EXCEPT NOTED. Physical Exam Physical Exam Dictation VITAL SIGNS: REVIEWED. GENERAL APPEARANCE: ALERT, ORIENTED X3, NO ACUTE DISTRESS, OBESE. HEAD AND FACE: NON-TRAUMATIC. EYES: PERRL, PINK CONJUNCTIVAS, EYELID NO TRAUMA, ANTERIOR CHAMBER CLEAR. EARS: PINNAS INTACT AND NO SIGNS OF TRAUMA OR ERYTHEMA. EAR CANALS CLEAR AND NO DISCHARGE. TMS NO ERYTHEMA. NOSE: NO DISCHARGE, NO BLEEDING. OROPHARYNX: MOUTH NORMAL, TEETH NO CARIES, TONGUE PINK. PHARYNX CLEAR, NO ERYTHEMA. TONSILS NO EXUDATES, NO ABSCESSES NOTED. MUCOUS MEMBRANE MOIST. NECK: SUPPLE, NON-TENDER, NO THYROMEGALY, NO MASSES, NO JVD, NO BRUITS. BREAST: DEFERRED. CHEST: NO TENDERNESS, NO CREPITUS, NO PARADOXICAL MOVEMENT, NO RETRACTIONS. LUNGS: CLEAR, WELL-VENTILATED, SYMMETRIC, NO RALES, NO WHEEZING, NO RHONCHI, NO STRIDOR, GOOD BREATH SOUNDS BILATERALLY. HEART: REGULAR RATE, REGULAR RHYTHM, NO MURMUR, NO GALLOPS. VASCULAR: NO PERIPHERAL EDEMA. ABDOMEN: SOFT, POSITIVE BOWEL SOUNDS, NONDISTENDED, NO GUARDING, NONTENDER, NO R EBOUND, NO MASSES NO HEPATOMEGALY, NO SPLENOMEGALY, NO CEDEÑO'S SIGN, NO HERNIAS. RECTAL: DEFERRED. GENITAL: DEFERRED. NEUROLOGICAL: NORMAL SPEECH, GROSS MOTOR FUNCTION INTACT, GROSS SENSORY FUNCTION INTACT. MUSCULOSKELETAL: NECK NONTENDER, FULL RANGE OF MOTION, BACK NONTENDER, FULL RANGE OF MOTION. EXTREMITIES: NONTENDER, FULL RANGE OF MOTION. SKIN: COLOR PINK, DRY, NO TURGOR, NO RASH, NO LACERATIONS, NO ABRASIONS, NO CONTUSIONS. LYMPHATICS: DEFERRED. Results Laboratory and Microbiology Lab and Micro Result Laboratory Tests Test 09/21/24 19:40 09/21/24 20:26 09/21/24 20:40 Urine Color LIGHT-YELLOW (YELLOW) Urine Appearance CLEAR (CLEAR) Urine pH 6.5 (5.0-8.0) Urine Specific [place] 1.031 (1.001-1.031) Urine Protein 50 mg/dL (NEGATIVE) H Urine Glucose (UA) >=1000 mg/dL (NEGATIVE) H Urine Ketones 20 mg/dL (NEGATIVE) H Urine Occult Blood +- (TRACE) (NEGATIVE) H Urine Nitrate NEGATIVE (NEGATIVE) Urine Bilirubin NEGATIVE mg/dL (NEGATIVE) Urine Urobilinogen 0.2 mg/dL (0.2-1.0) Urine Leukocyte Esterase NEGATIVE Sunshine/uL Urine RBC 0-1 /HPF (0-1) Urine WBC 6-10 /HPF (0-1) H Urine Squamous Epithelial Cells FEW /HPF (0-2) Urine Bacteria RARE /HPF (None Seen) Urine Opiates Screen NEGATIVE (NEGATIVE) Urine Barbiturates Screen NEGATIVE (NEGATIVE) Urine Phencyclidine Screen NEGATIVE (NEGATIVE) Urine Amphetamines Screen NEGATIVE (NEGATIVE) Urine Benzodiazepines Screen NEGATIVE (NEGATIVE) Urine Cocaine Screen POSITIVE (NEGATIVE) H Urine Marijuana (THC) Screen NEGATIVE (NEGATIVE) White Blood Count 14.9 K/uL (4.8-10.8) H Red Blood Count 4.15 MIL/uL (4.00-5.50) Hemoglobin 13.0 g/dL (12.0-16.0) Hematocrit 36.8 % (36-48) Mean Corpuscular Volume 87.7 fL (79-99) Mean Corpuscular Hemoglobin 31.6 pg (27.0-33.0) Mean Corpuscular Hemoglobin Concent 35.3 g/dL (32.0-36.0) Red Cell Distribution Width 12.6 % (11.0-15.5) Platelet Count 315 K/uL (130-400) Mean Platelet Volume 11.0 fL (7.5-10.5) H Immature Granulocyte % (Auto) 0.5 % (0-1) Neutrophils (%) (Auto) 78.4 % (40.0-77.0) H Lymphocytes (%) (Auto) 15.5 % (21.0-51.0) L Monocytes (%) (Auto) 4.3 % (3.0-13.0) Eosinophils (%) (Auto) 1.0 % (0.0-8.0) Basophils (%) (Auto) 0.3 % (0.0-5.0) Neutrophils # (Auto) 11.7 K/uL (1.8-7.7) H Lymphocytes # (Auto) 2.3 K/uL (1.0-4.8) Monocytes # (Auto) 0.6 K/uL (0.1-1.0) Eosinophils # (Auto) 0.15 K/uL (0.00-0.70) Basophils # (Auto) 0.05 K/uL (0.00-0.20) Absolute Immature Granulocyte (auto 0.07 K/uL (0-1) Nucleated Red Blood Cells 0.0 % (0.0-0.19) Red Blood Cell Morphology See comments Sodium Level 119 mmol/L (136-145) L Potassium Level 3.5 mmol/L (3.5-5.1) Chloride Level 84 mmol/L (101-111) *L Carbon Dioxide Level 25 mmol/L (21-32) Blood Urea Nitrogen 8 mg/dL (7-18) Creatinine 0.8 mg/dL (0.5-1.0) Glomerular Filtration Rate Calc 91 mL/min (>90) Random Glucose 456 mg/dL (70-105) *H Lactic Acid Level 3.1 mmol/L (0.8-2.5) H Total Calcium 8.9 mg/dL (8.5-10.1) Total Creatine Kinase 39 U/L (21-232) Troponin I High Sensitivity < 4 ng/L (4-50) L Human Chorionic Gonadotropin, Quant 2 mIU/mL (0-5) Total Bilirubin 0.6 mg/dL (0.2-1.0) Direct Bilirubin 0.1 mg/dL (0.0-0.3) Aspartate Amino Transf (AST/SGOT) 26 U/L (10-37) Alanine Aminotransferase (ALT/SGPT) 52 U/L (12-78) Alkaline Phosphatase 164 U/L (50-136) H Total Protein 7.4 g/dL (6.0-8.3) Albumin 3.4 g/dL (3.5-5.0) L Triglycerides Level 6780 mg/dL (30-200) H Lipase 104 U/L (16-77) H Labs Reviewed?: Yes EKG/XRAY/US/CT/MRI CT Scan Comment [place] [id number] [address] IMAGING REPORT Signed PATIENT: ELY SOLER MR#: [id number] : 1975 SEX: F AGE: 49 LOCATION: ED ORDER 23 STATUS: REG ER REPORT#: [id number] SERVICE 22 REASON: ABD PAIN/ SEPSIS ORDERING PHYSICIAN: BHARGAVI WETZEL MD PROCEDURE: ABD PEL WO - CT ABDOMEN/PELVIS W/O CONTRAST CT ABDOMEN/PELVIS W/O CONTRAST HISTORY: Abdominal pain COMPARISON: 03/30/2024 TECHNIQUE: Multiple sequential axial images of the abdomen and pelvis were obtained from the dome of the diaphragm through symphysis pubis. Patient was not given contrast through intravenous route. Oral contrast was not given. FINDINGS: No pleural effusion is seen bilaterally. There is no evidence of parenchymal disease or pulmonary nodule of the visualized lower lungs. Degenerative changes of the thoracolumbar spine are present. The heart is not enlarged. Liver measures 24 cm. Fatty changes of liver are noted. Pancreas is enlarged with peripancreatic fat stranding suspicious for acute pancreatitis in the proper clinical setting. The liver, spleen, adrenal glands are unremarkable. There is no evidence of hydronephrosis bilaterally. No evidence of renal stone is seen. Fecal material is seen in the colon. There are normal size retroperitoneal and mesenteric lymph nodes. No ascites is seen. Atherosclerotic changes are present. Pelvic sidewalls are symmetric bilaterally. Bladder is moderately distended. IMPRESSION: 1. Pancreas is enlarged with peripancreatic fat stranding suspicious for acute pancreatitis in the proper clinical setting. Lipase correlation is recommended. CT was performed with one or more following dose reduction techniques: automated exposure control, adjustment of the mA and kv according to patient's size, or use of a iterative reconstruction technique. DICTATED BY: TAMICA BUTTERFIELD MD DATE: 09/21/242224 ELECTRONICALLY SIGNED BY: TAMICA BUTTERFIELD MD DATE: 09/21/242233 [facility] MDM: DIFFERENTIAL DIAGNOSIS: SEPSIS, UTI, COCAINE ABUSE, PANCREATITIS, UNCONTROLLED DIABETES MELLITUS RATIONALE: TESTS CONSIDERED AND ORDERED SECONDARY TO SHARED DECISION MAKING INCLUDE: LABS, ECG AND RADIOLOGY PREVIOUS OUTSIDE RECORDS REVIEWED: OLD ER VISITS. RISK OF COMPLICATION AND/OR MORBIDITY OR MORTALITY OF PATIENT MANAGEMENT: NONE MEDICATIONS-PER MEDICATION RECONCILIATION NEED FOR HOSPITALIZATION: PATIENT DOES MEET CRITERIA FOR HOSPITALIZATION. NEED FOR EMERGENCY MAJOR/MINOR SURGERY: NO THERE ARE NO SOCIAL CONCERNS WITH THIS PATIENT. PRESCRIPTION DRUG MANAGEMENT PRESCRIPTIONS WILL INCLUDE SYMPTOMATIC CARE PATIENT'S PRIOR EXTERNAL MEDICAL RECORDS FROM OTHER ER VISITS WERE REVIEWED BY ME INDICATED. PRIOR TESTING AND RESULTS FROM PREVIOUS VISITS WERE REVIEWED. PRIOR TESTS WERE TAKEN INTO ACCOUNT WITH MEDICAL DECISION MAKING AND RESOURCE UTILIZATION, INDEPENDENT HISTORIAN/HISTORIANS WERE USED TO OBTAIN COMPLETE MEDICAL HISTORY. I INDEPENDENTLY INTERPRETED THE TEST THAT WERE PERFORMED, RESULTS WERE REVIEWED BY ME AND CONSIDERED FINDINGS ON RADIOLOGY IF ORDERED. MEDICAL MANAGEMENT AND EXAMINATION INTERPRETATION DISCUSSIONS WERE HAD BY ME WITH OTHER QUALIFIED HEALTHCARE PROFESSIONALS INDICATED FOR THE PATIENT'S CARE. PATIENT IS A 49-YEAR-OLD FEMALE COMING IN TO BE EVALUATED FOR ABDOMINAL PAIN. CT DISCLOSE STRANDING OF THE PANCREAS CONSISTENT WITH PANCREATITIS. LABORATORY WORKUP DID DISCLOSE ELEVATED TRIGLYCERIDES AND ELEVATED LIPASE WELL COCAINE POSITIVE. PATIENT WILL BE ADMITTED UNDER THE CARE OF [facility] FOR ONGOING MANAGEMENT OF ACUTE PANCREATITIS SECONDARY TO HYPERTRIGLYCERIDEMIA. ED Course Orders Procedure Category Date Status Time Iv Insertion CPOE 09/21/24 Transmitted 19:32 Pulse Ox(Continuous) RT 09/21/24 Transmitted 19:32 Vital Signs Per CPOE 09/21/24 Transmitted Routine 19:32 12 Lead Ekg Tracing- EKG 09/21/24 Complete Technical 19:32 Cbc With Differential LAB 09/21/24 Complete 19:32 Blood Cult YASMINE 09/21/24 In Process 19:32 Urinalysis Profile LAB 09/21/24 Complete 19:32 Culture Urine YASMINE 09/21/24 In Process 19:32 Creatine Kinase, Total LAB 09/21/24 Complete 19:32 Troponin I High LAB 09/21/24 Complete Sensitivity 19:32 Lactic Acid LAB 09/21/24 Complete 19:32 Basic Metabolic Panel LAB 09/21/24 Complete 19:32 Hcg,Quantitative LAB 09/21/24 Complete 19:32 Ceftriaxone 1g Vial PHA 09/21/24 Complete (Rocephine 1g Inj) 21:30 0.9%Nacl 1000ml (Ns PHA 09/21/24 Complete 1000ml) 21:30 Ct Abdomen/Pelvis W/O CT 09/21/24 Resulted Contrast 21:23 Lipase LAB 09/21/24 Complete 21:31 Drug Screen Urine LAB 09/21/24 Complete 21:31 Triglycerides LAB 09/21/24 Complete 21:31 Hepatic Function Panel LAB 09/21/24 Complete 21:31 Morphine 2mg Syg PHA 09/21/24 Complete (Morphine 2mg Syg) 22:00 Ondansetron 4mg Inj PHA 09/21/24 Complete (Zofran 4mg Inj) 22:00 Acetaminophen 500mg PHA 09/21/24 Complete Tab (Tylenol 500mg T 22:30 Arterial Blood Gas + RT 09/21/24 Transmitted 22:59 Insulin Regular, PHA 09/21/24 In Process Human 3ml (Humulin R 23:30 Covid Rna Naat LAB 09/21/24 Logged 23:29 Influenza Type A & B, LAB 09/21/24 Logged Rapid 23:29 Rapid (Group A Strep) LAB 09/21/24 Logged 23:29 Current Medications Medications (Trade) Dose Ordered Sig/Andrew Route PRN Reason Start Time Stop Time Status Last Admin Dose Admin Acetaminophen (TYLenol 500MG TAB) 1,000 mg ONCE ONCE PO 09/21/24 22:30 09/21/24 22:31 DC 09/21/24 22:20 Ceftriaxone Sodium (ROCEphine 1G INJ) 1 gm ONCE ONCE IVPB 09/21/24 21:30 09/21/24 21:31 DC 09/21/24 21:45 Insulin Human Regular 100 unit/ Sodium Chloride 100 ml @ 0 mls/hr PROTOCOL IV 09/21/24 23:30 10/21/24 23:29 Morphine Sulfate (morPHINE 2MG SYG) 2 mg ONCE ONCE IVP 09/21/24 22:00 09/21/24 22:01 DC 09/21/24 21:45 Ondansetron HCl (zoFRAN 4MG INJ) 4 mg ONCE ONCE IVP 09/21/24 22:00 09/21/24 22:01 DC 09/21/24 21:45 Sodium Chloride 1,000 ml @ 0 mls/hr ONCE ONCE IV 09/21/24 21:30 09/21/24 21:31 DC 09/21/24 21:45 Vital Signs Date Time Temp Pulse Resp B/P (MAP) Pulse Ox O2 Delivery O2 Flow Rate FiO2 09/21/24 23:28 100.4 96 22 149/88 93 Room Air* 0 21 09/21/24 22:20 101.5 09/21/24 21:46 101.5 98 26 146/99 94 Room Air* 0 21 09/21/24 19:20 101.7 99 20 136/89 98 Room Air Critical Care Note Comments CRITICAL CARE PROCEDURE NOTE AUTHORIZED AND PERFORMED BY: ME TOTAL CRITICAL CARE TIME: APPROXIMATELY 36 MINUTES DUE TO A HIGH PROBABILITY OF CLINICALLY SIGNIFICANT, LIFE THREATENING DETERIORATION, THE PATIENT REQUIRED MY HIGHEST LEVEL OF PREPAREDNESS TO INTERVENE EMERGENTLY AND I PERSONALLY SPENT THIS CRITICAL CARE TIME DIRECTLY AND PERSONALLY MANAGING THE PATIENT. THIS CRITICAL CARE TIME INCLUDED OBTAINING A HISTORY; EXAMINING THE PATIENT; PULSE OXIMETRY; ORDERING AND REVIEW OF STUDIES; ARRANGING URGENT TREATMENT WITH DEVELOPMENT OF A MANAGEMENT PLAN; EVALUATION OF PATIENT'S RESPONSE TO TREATMENT; FREQUENT REASSESSMENT; AND, DISCUSSIONS WITH OTHER PROVIDERS. THIS CRITICAL CARE TIME WAS PERFORMED TO ASSESS AND MANAGE THE HIGH PROBABILITY OF IMMINENT, LIFE-THREATENING DETERIORATION THAT COULD RESULT IN MULTI-ORGAN FAILURE. IT WAS EXCLUSIVE OF SEPARATELY BILLABLE PROCEDURES AND TREATING OTHER PATIENTS AND TEACHING TIME. PLEASE SEE MDM SECTION AND THE REST OF THE NOTE FOR FURTHER INFORMATION ON PATIENT ASSESSMENT AND TREATMENT. DX & DISP Disposition: Inpatient Decision to Admit Time: 23:32 Departure Impression: Primary Impression: Uncontrolled diabetes mellitus Additional Impressions: Acute pancreatitis, Cocaine abuse, Hypertriglyceridemia Condition: Stable Referrals: SELF,REFERRAL (PCP) BHARGAVI WETZEL MD Sep 21, 2024 20:05
--- NOTE | 2024-09-21 20:10 | EKG ---
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
[2024-09-21 20:46] LABS: BASOPHILS # (AUTO) 0.05 K/uL (0.00-0.20); BASOPHILS % (AUTO) 0.3 % (0.0-5.0); EOSINOPHILS # (AUTO) 0.15 K/uL (0.00-0.70); IMMATURE GRANULOCYTE ABSOLUTE 0.07 K/uL (0-1); LYMPHOCYTES # (AUTO) 2.3 K/uL (1.0-4.8); LYMPHOCYTES % (AUTO) 15.5 % (21.0-51.0); MEAN CORPUSCULAR VOLUME 87.7 fL (79-99); MONOCYTES # (AUTO) 0.6 K/uL (0.1-1.0); MONOCYTES % (AUTO) 4.3 % (3.0-13.0); NEUTROPHILS # (AUTO) 11.7 K/uL (1.8-7.7); NEUTROPHILS % (AUTO) 78.4 % (40.0-77.0); PLATELET COUNT (AUTO) 315 K/uL (130-400); RED BLOOD CELL COUNT(AUTO) 4.15 MIL/uL (4.00-5.50); RED CELL DISTRIBUTION WIDTH 12.6 % (11.0-15.5); WHITE BLOOD COUNT (AUTO) 14.9 K/uL (4.8-10.8)
[2024-09-21 21:14] LABS: MEAN CORPUSCULAR HEMOGLOBIN 31.6 pg (27.0-33.0); MEAN CORPUSCULAR HGB CONC 35.3 g/dL (32.0-36.0)
[2024-09-21 21:15] LABS: HEMATOCRIT 36.8 % (36-48)
--- NOTE | 2024-09-21 21:15 | NUR ---
ACUITY LEVEL ELEVATED. LACTIC PER EMR 3.1 WBC 14.9
[2024-09-21 21:17] LABS: POTASSIUM 3.5 mmol/L (3.5-5.1)
--- NOTE | 2024-09-21 21:22 | NUR ---
ASSUMED PT CARE AT THIS TIME
[2024-09-21] MEDS: 0.9%NACL 1000ML 1,000 ML IV ONE (21:45)
[2024-09-21] MEDS: morPHINE 2 MG SYG IVP ONE (21:45)
[2024-09-21] MEDS: ondanSETRON 4MG INJ IVP ONE (21:45)
[2024-09-21] MEDS: cefTRIAXone 1G VIAL IVPB ONE (21:45)
[2024-09-21 22:00] LABS: AMPHET/METH SCREEN,URINE NEGATIVE (NEGATIVE); BARBITURATE SCREEN, URINE NEGATIVE (NEGATIVE); BENZODIAZEPINES SCREEN,URINE NEGATIVE (NEGATIVE); CANNABINOID SCREEN,URINE NEGATIVE (NEGATIVE); COCAINE SCREEN,URINE POSITIVE (NEGATIVE); OPIATE SCREEN,URINE NEGATIVE (NEGATIVE); PHENCYCLIDINE SCREEN,URINE NEGATIVE (NEGATIVE)
[2024-09-21] MEDS: acetaMINOPHEN 500 MG TABLET PO ONE (22:20)
[2024-09-21 22:21] LABS: ALBUMIN 3.4 g/dL (3.5-5.0); BILIRUBIN,TOTAL 0.6 mg/dL (0.2-1.0); TOTAL PROTEIN, SERUM 7.4 g/dL (6.0-8.3)
[2024-09-21 22:23] LABS: CREATININE 0.8 mg/dL (0.5-1.0)
--- NOTE | 2024-09-21 22:33 | NUR ---
TRIAGE EDIT TO REFLECT UDS RESULTS
--- NOTE | 2024-09-21 22:34 | HMCIMG ---
CT ABDOMEN/PELVIS W/O CONTRAST HISTORY: Abdominal pain COMPARISON: 03/30/2024 TECHNIQUE: Multiple sequential axial images of the abdomen and pelvis were obtained from the dome of the diaphragm through symphysis pubis. Patient was not given contrast through intravenous route. Oral contrast was not given. FINDINGS: No pleural effusion is seen bilaterally. There is no evidence of parenchymal disease or pulmonary nodule of the visualized lower lungs. Degenerative changes of the thoracolumbar spine are present. The heart is not enlarged. Liver measures 24 cm. Fatty changes of liver are noted. Pancreas is enlarged with peripancreatic fat stranding suspicious for acute pancreatitis in the proper clinical setting. The liver, spleen, adrenal glands are unremarkable. There is no evidence of hydronephrosis bilaterally. No evidence of renal stone is seen. Fecal material is seen in the colon. There are normal size retroperitoneal and mesenteric lymph nodes. No ascites is seen. Atherosclerotic changes are present. Pelvic sidewalls are symmetric bilaterally. Bladder is moderately distended. IMPRESSION: 1. Pancreas is enlarged with peripancreatic fat stranding suspicious for acute pancreatitis in the proper clinical setting. Lipase correlation is recommended. CT was performed with one or more following dose reduction techniques: automated exposure control, adjustment of the mA and kv according to patient's size, or use of a iterative reconstruction technique.
[2024-09-21 22:40] LABS: BILIRUBIN,DIRECT 0.1 mg/dL (0.0-0.3)
--- NOTE | 2024-09-21 22:50 | NUR ---
PENDING HOME MEDICATIONS LIST, PATIENT'S SON STATED HE WILL BRING MEDICATIONS TOMORROW.
--- NOTE | 2024-09-21 23:26 | HP ---
[facility] PH[facility] Date of Service: Sep 21, 2024 Time of Service: 23:26 PCP: Radha Spaulding HISTORY OF PRESENT ILLNESS: This is a 49-year-old female with past medical history of pancreatitis, hypertension, diabetes and hyperlipidemia who presents to the ED for complaints of epigastric pain associated with nausea vomiting and subjective fever which started three days ago.Patient reports prior to abdominal pain she had ham sandwich and she started having all these symptoms she said.Her last bowel movement was 3 days ago and it was normal.Patient denies recreationsal drug use but turned out positive for cocaine in the urine toxicology.Patient was admitted on 03/30/2024in this facility for similar problems. Seen and examined patient in the ED awake,alert and coherent,continue to complain of abdominal pain on light palpation.Patient denies diarrhea,cough,chest pain,palpitation and shortness of breath. Vital signs upon arrival to ER temperature 101.7, heart rate 99, blood pressure 136/89 saturation 98% on room air Latest vital signs temperature 100.4, heart rate 96, respiration 22, blood pressure 149/88 saturation 93% on room air. Labs: WBC 14.9 with negative left shift of neutrophils 78. PH 7.43 CO2 34 PO2 63 bicarb 22 saturation 91 base excess -1.4 taken on room air. Sodium 119, potassium 3.5, chloride 84, glucose 456, lactic acid 3.1 to 1.6 triglyceride 6780 lipase 104. Influenza a and B negative SARs COVID negative strep A negative. CT abdomen and pelvis without contrast result revealed pancreas is enlarged with peripancreatic fat stranding suspicious for acute pancreatitis in the proper clinical setting. Lipase correlation is recommended. While in the ER patient received Rocephin 1 g IV, 1 L NS bolus, morphine 2 mg IV, Zofran 4 mg IV, Tylenol 1000 mg p.o. and patient was started on insulin drip using DKA protocol. We will admit patient in ICU for further medical management. REVIEW OF SYSTEMS CONSTITUTIONAL: Complain of fever and chills Denies night sweats. No unintentional weight loss reported. NEUROLOGICAL: Denies headache, amaurosis fugax, motor weakness, sensory deficit, vertigo/spinning sensation, gait abnormalities, or tremors. ENT: No hearing loss, otalgia, otorrhea, rhinitis, rhinorrhea, hoarseness, or sore throat. CARDIOVASCULAR: Denies any exertional angina, dyspnea on exertion, orthopnea, paroxysmal nocturnal dyspnea, palpitations, life-threatening arrhythmias, claudication. PULMONARY: Denies any shortness of breath, cough, phlegm/sputum, hemoptysis, pleuritic chest pain. SLEEP: Denies morning headaches, daytime somnolence or napping. Denies difficulty falling asleep, staying asleep, waking from sleep. Denies knowledge of snoring. GASTROINTESTINAL: Complain of abdominal pain nausea and vomiting Denies any type of dysphagia to either liquids or solids. Denies pyrosis, early satiety, diarrhea, constipation, or changes in stool consistency or caliber. Denies coffee-ground emesis, hematemesis, hematochezia, or melanotic stools. GENITOURINARY: Denies frequency, urgency, nocturia, hematuria or incontinence (Storage/Irritative symptoms.) Low urinary stream, straining to void, urinary intermittency or hesitancy, splitting of the voiding stream, terminal dribbling. ENDOCRINOLOGIC: Denies polyuria, polydipsia, polyphagia or heat/cold intolerances. HEMATOLOGIC: Denies thrombophilia/previous clots, or coagulopathy/bleeding disorders. ONCOLOGIC: Denies personal history of malignancy. DERMATOLOGIC: Denies rashes or pruritus. PSYCHIATRIC: Denies any suicidal or homicidal ideation. Denies hallucinations. PAST MEDICAL HISTORY: Hypertension Diabetes Hyperlipidemia Pancreatitis PAST SURGICAL HISTORY: Patient denies PAST SOCIAL HISTORY: Patient lives alone. Patient admits to drinking three beers per week and smokes one pack cigarette per week denies recreational drug use. FAMILY HISTORY: Diabetes Cardiovascular disease Hypertension Coded Allergies: No Known Allergies (Verified Allergy, Unknown, 03/21/17) PHYSICAL EXAM GENERAL APPEARANCE: The patient is awake, alert, and oriented, in no acute cardiopulmonary distress. NEUROLOGICAL: Cranial nerves II-XII grossly intact. Motor is 5/5 in bilateral upper and lower extremities proximal to distal. No sensory deficits. HEENT: Face is symmetric. Pupils are equal and reactive. Extraocular movements are intact. NECK: Supple. No JVD. No thyromegaly. No submental, submandibular, pre- /postauricular, occipital or supraclavicular lymphadenopathy. CHEST: Normal chest expansion. No Telemetry. LUNGS: Absence of any rales, rhonchi or any wheezing. CARDIOVASCULAR: Regular. S1 and S2 normal. No appreciable rubs, murmurs or gallops. ABDOMEN: Complain of abdominal tenderness on palpation Soft,and nondistended. There is no rebound, voluntary guarding, or rigidity. : Deferred. No Alvarado. EXTREMITIES: Non-edematous and not cyanotic. No clubbing. Good capillary refill. SKIN: No skin breakdown. Vital Sign (Last 24 Hours) 09/21/24 09/21/24 21:46 22:20 Temp 101.5 Pulse 98 Resp 26 B/P (MAP) 146/99 Pulse Ox 94 O2 Delivery Room Air* O2 Flow Rate 0 FiO2 21 LABS: Laboratory: Test 09/21/24 20:40 09/21/24 20:26 09/21/24 19:40 Range/Units Total Bilirubin 0.6 0.2-1.0 mg/dL Direct Bilirubin 0.1 0.0-0.3 mg/dL Aspartate Amino Transf (AST/SGOT) 26 10-37 U/L Alanine Aminotransferase (ALT/SGPT) 52 12-78 U/L Alkaline Phosphatase 164 H 50-136 U/L Total Protein 7.4 6.0-8.3 g/dL Albumin 3.4 L 3.5-5.0 g/dL Triglycerides Level 6780 H 30-200 mg/dL Lipase 104 H 16-77 U/L White Blood Count 14.9 H 4.8-10.8 K/uL Red Blood Count 4.15 4.00-5.50 MIL/uL Hemoglobin 13.0 12.0-16.0 g/dL Hematocrit 36.8 36-48 % Mean Corpuscular Volume 87.7 79-99 fL Mean Corpuscular Hemoglobin 31.6 27.0-33.0 pg Mean Corpuscular Hemoglobin Concent 35.3 32.0-36.0 g/dL Red Cell Distribution Width 12.6 11.0-15.5 % Platelet Count 315 130-400 K/uL Mean Platelet Volume 11.0 H 7.5-10.5 fL Immature Granulocyte % (Auto) 0.5 0-1 % Neutrophils (%) (Auto) 78.4 H 40.0-77.0 % Lymphocytes (%) (Auto) 15.5 L 21.0-51.0 % Monocytes (%) (Auto) 4.3 3.0-13.0 % Eosinophils (%) (Auto) 1.0 0.0-8.0 % Basophils (%) (Auto) 0.3 0.0-5.0 % Neutrophils # (Auto) 11.7 H 1.8-7.7 K/uL Lymphocytes # (Auto) 2.3 1.0-4.8 K/uL Monocytes # (Auto) 0.6 0.1-1.0 K/uL Eosinophils # (Auto) 0.15 0.00-0.70 K/uL Basophils # (Auto) 0.05 0.00-0.20 K/uL Absolute Immature Granulocyte (auto 0.07 0-1 K/uL Nucleated Red Blood Cells 0.0 0.0-0.19 % Red Blood Cell Morphology See comments Sodium Level 119 L 136-145 mmol/L Potassium Level 3.5 3.5-5.1 mmol/L Chloride Level 84 *L 101-111 mmol/L Carbon Dioxide Level 25 21-32 mmol/L Blood Urea Nitrogen 8 7-18 mg/dL Creatinine 0.8 0.5-1.0 mg/dL Glomerular Filtration Rate Calc 91 >90 mL/min Random Glucose 456 *H 70-105 mg/dL Lactic Acid Level 3.1 H 0.8-2.5 mmol/L Total Calcium 8.9 8.5-10.1 mg/dL Total Creatine Kinase 39 21-232 U/L Troponin I High Sensitivity < 4 L 4-50 ng/L Human Chorionic Gonadotropin, Quant 2 0-5 mIU/mL Urine Color LIGHT-YELLOW YELLOW Urine Appearance CLEAR CLEAR Urine pH 6.5 5.0-8.0 Urine Specific Marshall 1.031 1.001-1.031 Urine Protein 50 H NEGATIVE mg/dL Urine Glucose (UA) >=1000 H NEGATIVE mg/dL Urine Ketones 20 H NEGATIVE mg/dL Urine Occult Blood +- (TRACE) H NEGATIVE Urine Nitrate NEGATIVE NEGATIVE Urine Bilirubin NEGATIVE NEGATIVE mg/dL Urine Urobilinogen 0.2 0.2-1.0 mg/dL Urine Leukocyte Esterase NEGATIVE NEGATIVE Sunshine/uL Urine RBC 0-1 0-1 /HPF Urine WBC 6-10 H 0-1 /HPF Urine Squamous Epithelial Cells FEW 0-2 /HPF Urine Bacteria RARE None Seen /HPF Urine Opiates Screen NEGATIVE NEGATIVE Urine Barbiturates Screen NEGATIVE NEGATIVE Urine Phencyclidine Screen NEGATIVE NEGATIVE Urine Amphetamines Screen NEGATIVE NEGATIVE Urine Benzodiazepines Screen NEGATIVE NEGATIVE Urine Cocaine Screen POSITIVE H NEGATIVE Urine Marijuana (THC) Screen NEGATIVE NEGATIVE Current Medications Medications (Trade) Dose Ordered Sig/Andrew Route PRN Reason Start Time Stop Time Status Last Admin Dose Admin Insulin Human Regular 100 unit/ Sodium Chloride 100 ml @ 0 mls/hr PROTOCOL IV 09/21/24 23:30 10/21/24 23:29 [facility] DIAGNOSTICS / RADIOLOGY: [ ] ASSESSMENT: Hypertriglyceridemia induced acute pancreatitis POA Cocaine abuse POA Hyperglycemia due to uncontrolled diabetes POA Hyponatremia due to hyperglycemia POA Hypochloremia POA Sepsis unknown source POA PLAN: We will admit patient in ICU We will keep patient nothing by mouth We will continue insulin drip IVFluid and electrolyte replacement using DKA protocol as recommended per critical care team We will start patient on Rocephin IV bid for empiric coverage We will start on Famotidine 20 mg IV bid for GI prophylaxis We will add prn medication for fever,pain,cough and nausea Counseled on Cocaine use cessation We will reconcile home meds once medlist available We will seek critical care consultation We will request labs in am Further orders to follow depending on above results Case discussed with attending physician and came up with above treatment and plan of care. ADVANCED CARE PLANNING 1. Which of the following were discussed? Hospice Care - No Therapeutic options - Yes Advance Directives - No Other discussions - 2. Discussed with who? Patient 3. Voluntary nature of this service was explained to the patient? Yes 4. Amount of time spent - _25 5. Reviewed by Physician? (if this service was performed by NPP) Yes Patient seen and examined by me. Agree with note by BALLING HEAD TENDER SEE ADDITIONAL ORDERS PER CHART DISCUSSED WITH NURSING STAFF SHELLY CUELLAR FENCE [employer] CUTTER Sep 21, 2024 23:26
[2024-09-21 23:28] VITALS: TEMP 100.4
[2024-09-21] MEDS ORDERED: INSULIN REGULAR, HUMAN 3ML 100 UNIT in 0.9%NACL 100ML 99 ML IV SCH (23:30)
[2024-09-21 23:54] LABS: ABG BASE EXCESS -1.4 mmol/L (-2.0-3.0); ABG HCO3 22.3 mmol/L (21.0-28.0); ABG OXYGEN SATURATION 91.7 % (94.0-98.0); ABG PCO2 34 mmHg (32-45); ABG PH 7.433 (7.350-7.450); CARBON MONOXIDE 0.3 % (0.5-1.5); DEVICE COMMENT RN, RB; HHb 8.3; PO2, ARTERIAL BG 63.1 mmHg (83.0-108.0); VENT MODE, BG RA (ROOM AIR)
[2024-09-21 23:55] LABS: RAPID GROUP A STREP negative (NEGATIVE)
[2024-09-21 23:57] LABS: SARS-CoV-2, RNA, NAAT NEGATIVE SARS CoV-2 (NEGATIVE)
--- NOTE | 2024-09-21 23:58 | NUR ---
CRITICAL CARE CONSULT DONE AT THIS TIME; PAGE MCKEON NOTIFIED OF PATIENT CONSULT
[2024-09-22] MEDS ORDERED: PoTASSium chloRIDE 20MEQ/10ML 20 MEQ in 0.9%NACL 1000ML 1,000 ML IV SCH
[2024-09-22] MEDS ORDERED: DEXTROSE 5 %-0.45 % NACL 1,000 ML IV SCH
[2024-09-22] MEDS ORDERED: 0.9%NACL 1000ML 1,000 ML IV SCH
[2024-09-22] MEDS ORDERED: ondanSETRON 4MG INJ IV PRN
[2024-09-22 00:05] LABS: INFLUENZA TYPE A Negative For Type A (NEGATIVE); INFLUENZA TYPE B Negative For Type B (NEGATIVE)
[2024-09-22] MEDS: INSULIN REGULAR, HUMAN 3ML 100 UNIT in 0.9%NACL 100ML 100 ML IV SCH (00:16)
[2024-09-22] MEDS: D5W-1/2 NS/20MEQ KCL 1,000 ML IV SCH (00:20)
[2024-09-22] MEDS: D5W-1/2 NS/20MEQ KCL 1,000 ML IV ONE (00:21)
[2024-09-22] MEDS ORDERED: D5W-1/2 NS/20MEQ KCL 1,000 ML IV SCH (00:30)
--- NOTE | 2024-09-22 00:33 | CONS ---
[facility] CONSULTATION NOTE Date Patient Seen: Sep 22, 2024 Time of Visit: 00:21 Supervising Physician: [DR. ARABELLA MENDES ] Reason for Consultation: [ CRITICAL CARE MANAGEMENT] Primary Care Physician: [ ] Outpatient Specialists: [ ] Inpatient Consults: [ ] PROBLEM LIST: 1. Acute pancreatitis, POA 2. Acute complicated cystitis, POA 3. Severe sepsis, POA 4. Hypertriglyceridemia in the context of acute pancreatitis, POA 5. Nicotine dependence, POA 6. Diabetes type 2 uncontrolled, POA 7. Cocaine abuse, POA Chief complaint: Abdominal pain, nausea HPI: Patient is a 49-year-old female with past medical history significant for diabetes type 2, pancreatitis, fatty liver, diabetes type 2, hypertr iglyceridemia, and a surgical history of tubal ligation, x3, presents to the emergency department complaining of diffuse abdominal pain associated with nausea for two days. Patient reports that for the past two days, she has been experiencing severe abdominal pain rated 8/10 in pain scale associated with nausea without vomiting. Tonight, due to the persistent of the symptoms, patient decided come to the emergency department for further evaluation and treatment. Patient denies fever, chills, vomiting, diarrhea, constipation, dysuria, chest pain, dizziness, or any other symptoms. The workup in the emergency department shows a temperature of 101 0.7 F, heart rate of 99, lactic acid of 3.1, WBC of 14.9, sodium of 119, chloride 84, glucose of 456, triglyceride of 6780, lipase of 104, UA shows UTI. In the emergency department, patient received Zofran 4 mg IV, morphine 2 mg IV, Tylenol 1000 mg p.o. ceftriaxone 1 g IV, NS 1 L bolus. A critical Care has been consulted to help with medical management. PAST MEDICAL HX: see above PAST SURGICAL HX: noncontributory SOCIAL HISTORY: No tobacco, ETOH, or illicit drug use Coded Allergies: No Known Allergies (Verified Allergy, Unknown, 03/21/17) REVIEW OF SYSTEMS: 12 point ROS reviewed with patient. Pertinent positives mentioned above. Otherwise negative. PHYSICAL EXAM: GENERAL: alert, weak, awake oriented x 3 HEENT: EOMI, Sclera non icteric, moist mucosa NECK: Supple, no JVD, trachea midline LUNGS: Clear breath sounds bilaterally. No wheezes HEART: Regular rate and rhythm. Normal S1 and S2, without murmurs ABD: Abdomen soft, nontender. Bowel sounds present EXT: No clubbing cyanosis or edema NEURO: Alert and oriented to person, follows commands Vital Signs (last 8hr) Date Time Temp Pulse Resp B/P (MAP) Pulse Ox O2 Delivery O2 Flow Rate FiO2 09/21/24 23:28 100.4 96 22 149/88 93 Room Air* 0 21 09/21/24 22:20 101.5 09/21/24 21:46 101.5 98 26 146/99 94 Room Air* 0 21 09/21/24 19:20 101.7 99 20 136/89 98 Room Air LABS: Hematology Labs: Test 09/21/24 20:26 Range/Units White Blood Count 14.9 H 4.8-10.8 K/uL Red Blood Count 4.15 4.00-5.50 MIL/uL Hemoglobin 13.0 12.0-16.0 g/dL Hematocrit 36.8 36-48 % Mean Corpuscular Volume 87.7 79-99 fL Mean Corpuscular Hemoglobin 31.6 27.0-33.0 pg Mean Corpuscular Hemoglobin Concent 35.3 32.0-36.0 g/dL Red Cell Distribution Width 12.6 11.0-15.5 % Platelet Count 315 130-400 K/uL Mean Platelet Volume 11.0 H 7.5-10.5 fL Immature Granulocyte % (Auto) 0.5 0-1 % Neutrophils (%) (Auto) 78.4 H 40.0-77.0 % Lymphocytes (%) (Auto) 15.5 L 21.0-51.0 % Monocytes (%) (Auto) 4.3 3.0-13.0 % Eosinophils (%) (Auto) 1.0 0.0-8.0 % Basophils (%) (Auto) 0.3 0.0-5.0 % Neutrophils # (Auto) 11.7 H 1.8-7.7 K/uL Lymphocytes # (Auto) 2.3 1.0-4.8 K/uL Monocytes # (Auto) 0.6 0.1-1.0 K/uL Eosinophils # (Auto) 0.15 0.00-0.70 K/uL Basophils # (Auto) 0.05 0.00-0.20 K/uL Absolute Immature Granulocyte (auto 0.07 0-1 K/uL Nucleated Red Blood Cells 0.0 0.0-0.19 % Red Blood Cell Morphology See comments Chemistry Labs: Test 09/21/24 23:48 09/21/24 20:40 09/21/24 20:26 Range/Units Whole Blood Glucose 282 H 70-110 MG/DL Total Bilirubin 0.6 0.2-1.0 mg/dL Direct Bilirubin 0.1 0.0-0.3 mg/dL Aspartate Amino Transf (AST/SGOT) 26 10-37 U/L Alanine Aminotransferase (ALT/SGPT) 52 12-78 U/L Alkaline Phosphatase 164 H 50-136 U/L Total Protein 7.4 6.0-8.3 g/dL Albumin 3.4 L 3.5-5.0 g/dL Triglycerides Level 6780 H 30-200 mg/dL Lipase 104 H 16-77 U/L Sodium Level 119 L 136-145 mmol/L Potassium Level 3.5 3.5-5.1 mmol/L Chloride Level 84 *L 101-111 mmol/L Carbon Dioxide Level 25 21-32 mmol/L Blood Urea Nitrogen 8 7-18 mg/dL Creatinine 0.8 0.5-1.0 mg/dL Glomerular Filtration Rate Calc 91 >90 mL/min Random Glucose 456 *H 70-105 mg/dL Lactic Acid Level 3.1 H 0.8-2.5 mmol/L Total Calcium 8.9 8.5-10.1 mg/dL Total Creatine Kinase 39 21-232 U/L Troponin I High Sensitivity < 4 L 4-50 ng/L Human Chorionic Gonadotropin, Quant 2 0-5 mIU/mL DIAGNOSTICS / RADIOLOGY RESULTS: [ ] PLAN NEURO: Minimize central acting medications as possible. Fall Precautions. Well lighted room through the day and minimize interruptions through the night to prevent acute delirium. PULMONARY: Supplemental 02 as needed Titrate Fio2 to keep Spo2 > or = 90% DuoNebs and CPT as needed IS hourly while awake for pulmonary hygiene Out of bed to chair as tolerated VAP Bundle Vent/BIPAP Settings: [ ] Driving pressure: [ ] P Plat: [ ] Static C: [ ] Static R: [ ] P/F Ratio: [ ] CARDIOVASCULAR: Follow hemodynamics. Titrate vasopressor to keep MAP >65 or systolic blood pressure >95mmHg DIPS: Insulin drip LINES: [ ] GI & NUTRITION: Keep patient NPO except medications Aspirations precautions Prokinetic agents and laxatives as needed KIDNEYS & ELECTROLYTES: Strict monitoring of intake and output Daily weights Avoid nephrotoxic agents Monitor electrolytes and replace as needed Goal urine output of 30mL/hr or 0.5mL/kg/hr Urine output: [ ] Fluid Balance: [ ] ENDOCRINE: Maintain blood glucose between 100-180 at all times. Continue insulin drips INFECTIOUS DISEASE: Trend temperature. العراقي-culture if febrile. Micro: [ ] Antibiotics: Zosyn 3.375 g IV every 8 hours HEMATOLOGY & COAGULATION: Monitor H&H. Keep Hgb > 7 Transfuse 1 unit of PRBC for Hgb < 7 Transfuse 1 pack of platelets of platelets < 20, 000 Watch for any signs and symptoms of bleeding SKIN: Pressure ulcer prevention per facility protocol Rehab: PT/OT Prophylaxis: GI: [Famotidine ] DVT: [SCDs] Code Status: Full Resuscitation Disposition: [Keep in ICU ] Other: Total patient care time exceeds 35 minutes excluding all procedures. Case was discussed and seen with my supervising physician Dr. Arabella Mendes. The above plan was formulated and agreed upon. CALVIN ANTONYP Sep 22, 2024 00:33
[2024-09-22] MEDS: ZOSYN 3.375GM +NS 50ML IV SCH (01:36)
[2024-09-22] MEDS: FENOFIBRATE NANOCRYSTALLIZED 145 MG TAB PO ONE (01:36)
[2024-09-22] MEDS: NICOTINE 7 MG/ 24 HR PATCH TD ONE (01:37)
[2024-09-22 01:44] LABS: MAGNESIUM 1.2 mg/dL (1.80-2.40); POTASSIUM 3.1 mmol/L (3.5-5.1)
[2024-09-22] MEDS: ketOROlac 15MG/ML VIAL (15MG/ML) IM PRN (01:53)
[2024-09-22] MEDS: PoTASSium chloRIDE 10MEQ/100ML 100 ML IV PRN (02:05)
[2024-09-22] MEDS: MAGNESIUM 2GM PREMIX 50ML 50 ML IV SCH (02:05)
[2024-09-22 02:32] LABS: CREATININE 0.6 mg/dL (0.5-1.0)
[2024-09-22] MEDS: PoTASSium chloRIDE 10MEQ/100ML 100 ML IV ONE (03:55)
[2024-09-22 06:33] LABS: BASOPHILS # (AUTO) 0.04 K/uL (0.00-0.20); BASOPHILS % (AUTO) 0.3 % (0.0-5.0); EOSINOPHILS # (AUTO) 0.16 K/uL (0.00-0.70); EOSINOPHILS % (AUTO) 1.4 % (0.0-8.0); HEMATOCRIT 32.9 % (36-48); IMMATURE GRANULOCYTE ABSOLUTE 0.06 K/uL (0-1); LYMPHOCYTES # (AUTO) 1.8 K/uL (1.0-4.8); LYMPHOCYTES % (AUTO) 15.5 % (21.0-51.0); MEAN CORPUSCULAR HEMOGLOBIN 34.1 pg (27.0-33.0); MEAN CORPUSCULAR HGB CONC 38.3 g/dL (32.0-36.0); MEAN CORPUSCULAR VOLUME 89.2 fL (79-99); MONOCYTES # (AUTO) 0.8 K/uL (0.1-1.0); MONOCYTES % (AUTO) 6.5 % (3.0-13.0); NEUTROPHILS # (AUTO) 8.9 K/uL (1.8-7.7); NEUTROPHILS % (AUTO) 75.8 % (40.0-77.0); PLATELET COUNT (AUTO) 256 K/uL (130-400); RED BLOOD CELL COUNT(AUTO) 3.69 MIL/uL (4.00-5.50); RED CELL DISTRIBUTION WIDTH 12.6 % (11.0-15.5); WHITE BLOOD COUNT (AUTO) 11.7 K/uL (4.8-10.8)
[2024-09-22 06:58] LABS: ALBUMIN 2.5 g/dL (3.5-5.0); BILIRUBIN,TOTAL 0.9 mg/dL (0.2-1.0); MAGNESIUM 1.9 mg/dL (1.80-2.40); POTASSIUM 3.5 mmol/L (3.5-5.1); THYROID STIMULATING HORMONE 2.88 uIU/mL (0.36-3.74)
[2024-09-22 07:55] LABS: ERYTHROCYTE SEDIMENTATION RATE 71 MM/HR (0-20)
[2024-09-22 08:00] LABS: CREATININE 0.5 mg/dL (0.5-1.0); TOTAL PROTEIN, SERUM 6.7 g/dL (6.0-8.3)
--- NOTE | 2024-09-22 08:52 | NUR ---
received SBAR at this time
[2024-09-22] MEDS ORDERED: cefTRIAXone 1G VIAL IVPB SCH (09:00)
--- NOTE | 2024-09-22 09:03 | NUR ---
SBAR given to robyn at this time
[2024-09-22] MEDS: NICOTINE 7 MG/ 24 HR PATCH TD SCH (10:34)
[2024-09-22] MEDS: FAMOTIDINE 20MG VIAL IV SCH (10:34)
[2024-09-22 12:08] LABS: CREATININE 0.4 mg/dL (0.5-1.0); POTASSIUM 3.7 mmol/L (3.5-5.1)
--- NOTE | 2024-09-22 12:14 | PN ---
[facility] PROGRESS NOTE Date Patient Seen: Sep 22, 2024 Time of Visit: 12:14 Supervising Physician: Dr. Souleymane Mendes Primary Care Physician: Unknown PCP Outpatient Specialists: [ ] Inpatient Consults: Critical care PROBLEM LIST: Acute pancreatitis, POA Acute complicated cystitis, POA Severe sepsis, POA Hypertriglyceridemia in the context of acute pancreatitis, POA Nicotine dependence, POA Diabetes type 2 uncontrolled, POA Cocaine abuse, POA INTERVAL HISTORY: HPI: Patient is a 49-year-old female with past medical history significant for diabetes type 2, pancreatitis, fatty liver, diabetes type 2, hypertriglyceridemia, and a surgical history of tubal ligation, x3, presents to the emergency department complaining of diffuse abdominal pain associated with nausea for two days. Patient reports that for the past two days, she has been experiencing severe abdominal pain rated 8/10 in pain scale associated with nausea without vomiting. Tonight, due to the persistent of the symptoms, patient decided come to the emergency department for further evaluation and treatment. Patient denies fever, chills, vomiting, diarrhea, constipation, dysuria, chest pain, dizziness, or any other symptoms. The workup in the emergency department shows a temperature of 101 0.7 F, heart rate of 99, lactic acid of 3.1, WBC of 14.9, sodium of 119, chloride 84, glucose of 456, triglyceride of 6780, lipase of 104, UA shows UTI. In the emergency department, patient received Zofran 4 mg IV, morphine 2 mg IV, Tylenol 1000 mg p.o. ceftriaxone 1 g IV, NS 1 L bolus. A critical Care has been consulted to help with medical management. 09/22/2024: At the time of my visit, the patient remained in the emergency department awaiting bed assignment. She was awake alert and oriented x4. the patient was on oxygen supplementation via the nasal cannula. On the monitor, she was normotensive without the need for pressor therapy. There was no ar rhythmias noted. The patient denied any complaint of chest pain. She denies any nausea vomiting or diarrhea. She did complain of some dysuria. The patient is functional and does not require assistance for ambulation. On laboratory data review today, CBC was unremarkable except for a slightly elevated WBC of 11.7. Chemistry panel did show a sodium of 128, potassium of 3.5, chloride of 94, CO2 of 25, , BUN of 7, creatinine of 0.5 and a glucose of 348. A gap of 11, lactic acid of 1.9, calcium of 8.2, triglyceride of 3412, cholesterol of 324, LDL of 33 and a lipase count of 57. The patient remains on a insulin drip and is on hydration with D five half NS with 20 of K. she is also on empiric antibiotic therapy with IV Zosyn. No new complaint. REVIEW OF SYSTEMS: 12 point ROS reviewed with patient. Pertinent positives mentioned above. Otherwise negative. PHYSICAL EXAM: GENERAL: alert, weak, awake oriented x 3 HEENT: EOMI, Sclera non icteric, moist mucosa NECK: Supple, no JVD, trachea midline LUNGS: Clear breath sounds bilaterally. No wheezes HEART: Regular rate and rhythm. Normal S1 and S2, without murmurs ABD: Abdomen soft, nontender. Bowel sounds present EXT: No clubbing cyanosis or edema NEURO: Alert and oriented to person, follows commands Vital Signs (last 8hr) Date Time Temp Pulse Resp B/P (MAP) Pulse Ox O2 Delivery O2 Flow Rate FiO2 09/22/24 11:00 92 17 128/68 96 Room Air* 0 21 09/22/24 10:00 88 17 142/89 96 Room Air* 0 21 09/22/24 09:04 97.0 91 17 134/74 96 Room Air* 0 21 09/22/24 06:08 78 16 97 Nasal Cannula* 2 28 LABS: Hematology Labs: Test 09/22/24 06:22 09/21/24 20:26 Range/Units White Blood Count 11.7 H 4.8-10.8 K/uL Red Blood Count 3.69 L 4.00-5.50 MIL/uL Hemoglobin 12.6 12.0-16.0 g/dL Hematocrit 32.9 L 36-48 % Mean Corpuscular Volume 89.2 79-99 fL Mean Corpuscular Hemoglobin 34.1 H 27.0-33.0 pg Mean Corpuscular Hemoglobin Concent 38.3 H 32.0-36.0 g/dL Red Cell Distribution Width 12.6 11.0-15.5 % Platelet Count 256 130-400 K/uL Mean Platelet Volume 11.2 H 7.5-10.5 fL Immature Granulocyte % (Auto) 0.5 0-1 % Neutrophils (%) (Auto) 75.8 40.0-77.0 % Lymphocytes (%) (Auto) 15.5 L 21.0-51.0 % Monocytes (%) (Auto) 6.5 3.0-13.0 % Eosinophils (%) (Auto) 1.4 0.0-8.0 % Basophils (%) (Auto) 0.3 0.0-5.0 % Neutrophils # (Auto) 8.9 H 1.8-7.7 K/uL Lymphocytes # (Auto) 1.8 1.0-4.8 K/uL Monocytes # (Auto) 0.8 0.1-1.0 K/uL Eosinophils # (Auto) 0.16 0.00-0.70 K/uL Basophils # (Auto) 0.04 0.00-0.20 K/uL Absolute Immature Granulocyte (auto 0.06 0-1 K/uL Nucleated Red Blood Cells 0.0 0.0-0.19 % Erythrocyte Sedimentation Rate 71 H 0-20 MM/HR Red Blood Cell Morphology See comments Chemistry Labs: Test 09/22/24 11:31 09/22/24 06:22 09/21/24 20:40 09/21/24 20:26 Range/Units Sodium Level 128 L 136-145 mmol/L Potassium Level 3.7 3.5-5.1 mmol/L Chloride Level 93 L 101-111 mmol/L Carbon Dioxide Level 24 21-32 mmol/L Blood Urea Nitrogen 3 L 7-18 mg/dL Creatinine 0.4 L 0.5-1.0 mg/dL Glomerular Filtration Rate Calc 122 >90 mL/min Whole Blood Glucose 266 H 70-110 MG/DL Bedside Glucose Comment Notified Nurse Random Glucose 326 H 70-105 mg/dL Total Calcium 7.1 L 8.5-10.1 mg/dL Triglycerides Level 3711 H 30-200 mg/dL Lactic Acid Level 1.9 0.8-2.5 mmol/L Magnesium Level 1.90 1.80-2.40 mg/dL Total Bilirubin 0.9 # 0.2-1.0 mg/dL Aspartate Amino Transf (AST/SGOT) 24 10-37 U/L Alanine Aminotransferase (ALT/SGPT) 33 # 12-78 U/L Alkaline Phosphatase 135 50-136 U/L Total Protein 6.7 6.0-8.3 g/dL Albumin 2.5 #L 3.5-5.0 g/dL Cholesterol Level 324 #H <200 mg/dL LDL Cholesterol 59 0-99 mg/dL HDL Cholesterol 33 L 35-85 mg/dL Amylase Level 34 # 25-115 U/L Lipase 57 16-77 U/L Procalcitonin 0.05 0.05-0.5 ng/mL Thyroid Stimulating Hormone (TSH) 2.88 # 0.36-3.74 uIU/mL Direct Bilirubin 0.1 0.0-0.3 mg/dL Total Creatine Kinase 39 21-232 U/L Troponin I High Sensitivity < 4 L 4-50 ng/L Human Chorionic Gonadotropin, Quant 2 0-5 mIU/mL DIAGNOSTICS / RADIOLOGY RESULTS: [ ] PLAN 09/22/2024: For now, we are going to continue current management for the patient. She is going to remain on the insulin drip and as well we will continue on hydration with D5 half NS +20 of K. The patient was also started on fenofibrate. I am going to request a repeat chemistry with a triglyceride levels to follow the trend. We will repeat surveillance labs in the morning. We will monitor the patient's progress and response to management. We will continue to provide general supportive care, GI and DVT prophylaxis. Further orders per attending MD and hospital course. NEURO: Minimize central acting medications as possible. Fall Precautions. Well lighted room through the day and minimize interruptions through the night to prevent acute delirium. PULMONARY: Supplemental 02 as needed Titrate Fio2 to keep Spo2 > or = 90% DuoNebs and CPT as needed IS hourly while awake for pulmonary hygiene Out of bed to chair as tolerated CARDIOVASCULAR: Follow hemodynamics. Titrate vasopressor to keep MAP >65 or systolic blood pressure >95mmHg DIPS: Insulin drip LINES: PIVs GI & NUTRITION: Keep patient NPO except medications Aspirations precautions Prokinetic agents and laxatives as needed KIDNEYS & ELECTROLYTES: Strict monitoring of intake and output Daily weights Avoid nephrotoxic agents Monitor electrolytes and replace as needed Goal urine output of 30mL/hr or 0.5mL/kg/hr Urine output: [ ] Fluid Balance: [ ] ENDOCRINE: Maintain blood glucose between 100-180 at all times. Continue insulin drips INFECTIOUS DISEASE: Trend temperature. العراقي-culture if febrile. Micro: Urine culture in process. Antibiotics: Zosyn 3.375 g IV every 8 hours HEMATOLOGY & COAGULATION: Monitor H&H. Keep Hgb > 7 Transfuse 1 unit of PRBC for Hgb < 7 Transfuse 1 pack of platelets of platelets < 20, 000 Watch for any signs and symptoms of bleeding SKIN: Pressure ulcer prevention per facility protocol Rehab: PT/OT Prophylaxis: GI: [Famotidine ] DVT: [SCDs] Code Status: Full Resuscitation Disposition: [Keep in ICU ] Other: Total patient care time exceeds 35 minutes excluding all procedures. Case was discussed and seen with my supervising physician Dr. Souleymane Mendes. The above plan was formulated and agreed upon. JENNIFER YNA NP Sep 22, 2024 12:14
--- NOTE | 2024-09-22 16:59 | EKG ---
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
[2024-09-22 17:08] LABS: CREATININE 0.5 mg/dL (0.5-1.0); POTASSIUM 3.8 mmol/L (3.5-5.1)
--- NOTE | 2024-09-22 19:16 | PN ---
[facility] PROGRESS NOTE Date of Service: Sep 22, 2024 Time of Service: 18:58 SUBJECTIVE: Ms Florencia Spaulding states she is no longer having any abdominal pain. no n/v/d. ] REVIEW OF SYSTEMS CONSTITUTIONAL: Denies night sweats. No unintentional weight loss reported. NEUROLOGICAL: Denies headache, amaurosis fugax, motor weakness, sensory deficit, vertigo/spinning sensation, gait abnormalities, or tremors. ENT: No hearing loss, otalgia, otorrhea, rhinitis, rhinorrhea, hoarseness, or sore throat. CARDIOVASCULAR: Denies any exertional angina, dyspnea on exertion, orthopnea, paroxysmal nocturnal dyspnea, palpitations, life-threatening arrhythmias, serena dication. PULMONARY: Denies any shortness of breath, cough, phlegm/sputum, hemoptysis, pleuritic chest pain. SLEEP: Denies morning headaches, daytime somnolence or napping. Denies difficulty falling asleep, staying asleep, waking from sleep. Denies knowledge of snoring. GASTROINTESTINAL: no belly pain Denies any type of dysphagia to either liquids or solids. Denies pyrosis, early satiety, diarrhea, constipation, or changes i n stool consistency or caliber. Denies coffee-ground emesis, hematemesis, hematochezia, or melanotic stools. GENITOURINARY: Denies frequency, urgency, nocturia, hematuria or incontinence (Storage/Irritative symptoms.) Low urinary stream, straining to void, urinary intermittency or hesitancy, splitting of the voiding stream, terminal dribbling. ENDOCRINOLOGIC: Denies polyuria, polydipsia, polyphagia or heat/cold intolerances. HEMATOLOGIC: Denies thrombophilia/previous clots, or coagulopathy/bleeding disorders. ONCOLOGIC: Denies personal history of malignancy. DERMATOLOGIC: Denies rashes or pruritus. PSYCHIATRIC: Denies any suicidal or homicidal ideation. Denies hallucinations. PHYSICAL EXAM GENERAL APPEARANCE: The patient is awake, alert, and oriented, in no acute cardiopulmonary distress. NEUROLOGICAL: Cranial nerves II-XII grossly intact. Motor is 5/5 in bilateral upper and lower extremities proximal to distal. No sensory deficits. HEENT: Face is symmetric. Pupils are equal and reactive. Extraocular movements are intact. NECK: Supple. No JVD. No thyromegaly. No submental, submandibular, pre- /postauricular, occipital or supraclavicular lymphadenopathy. CHEST: Normal chest expansion. No Telemetry. LUNGS: Absence of any rales, rhonchi or any wheezing. CARDIOVASCULAR: Regular. S1 and S2 normal. No appreciable rubs, murmurs or gallops. ABDOMEN: Complain of abdominal tenderness on palpation Soft,and nondistended. There is no rebound, voluntary guarding, or rigidity. : Deferred. No Alvarado. EXTREMITIES: Non-edematous and not cyanotic. No clubbing. Good capillary refill. SKIN: No skin breakdown. Vital Signs (last 8hr) Date Time Temp Pulse Resp B/P (MAP) Pulse Ox O2 Delivery O2 Flow Rate FiO2 09/22/24 18:00 94 17 109/52 96 Room Air* 0 21 09/22/24 17:00 96 17 138/74 96 Room Air* 0 21 09/22/24 16:00 93 17 107/64 96 Room Air* 0 21 09/22/24 15:00 96 17 105/64 98 Room Air* 0 21 09/22/24 14:00 91 18 108/59 96 Room Air* 0 21 09/22/24 13:00 91 17 130/76 98 Room Air* 0 21 09/22/24 12:00 93 17 123/81 98 Room Air* 0 21 09/22/24 11:00 92 17 128/68 96 Room Air* 0 21 LABS: Laboratory: Test 09/22/24 18:15 09/22/24 16:53 09/22/24 11:31 09/22/24 06:22 Range/Units Whole Blood Glucose 231 H 70-110 MG/DL Sodium Level 131 L 136-145 mmol/L Potassium Level 3.8 3.5-5.1 mmol/L Chloride Level 94 L 101-111 mmol/L Carbon Dioxide Level 25 21-32 mmol/L Blood Urea Nitrogen 2 L 7-18 mg/dL Creatinine 0.5 0.5-1.0 mg/dL Glomerular Filtration Rate Calc 116 >90 mL/min Random Glucose 251 H 70-105 mg/dL Total Calcium 7.8 L 8.5-10.1 mg/dL Bedside Glucose Comment Notified Nurse Triglycerides Level 3711 H 30-200 mg/dL White Blood Count 11.7 H 4.8-10.8 K/uL Red Blood Count 3.69 L 4.00-5.50 MIL/uL Hemoglobin 12.6 12.0-16.0 g/dL Hematocrit 32.9 L 36-48 % Mean Corpuscular Volume 89.2 79-99 fL Mean Corpuscular Hemoglobin 34.1 H 27.0-33.0 pg Mean Corpuscular Hemoglobin Concent 38.3 H 32.0-36.0 g/dL Red Cell Distribution Width 12.6 11.0-15.5 % Platelet Count 256 130-400 K/uL Mean Platelet Volume 11.2 H 7.5-10.5 fL Immature Granulocyte % (Auto) 0.5 0-1 % Neutrophils (%) (Auto) 75.8 40.0-77.0 % Lymphocytes (%) (Auto) 15.5 L 21.0-51.0 % Monocytes (%) (Auto) 6.5 3.0-13.0 % Eosinophils (%) (Auto) 1.4 0.0-8.0 % Basophils (%) (Auto) 0.3 0.0-5.0 % Neutrophils # (Auto) 8.9 H 1.8-7.7 K/uL Lymphocytes # (Auto) 1.8 1.0-4.8 K/uL Monocytes # (Auto) 0.8 0.1-1.0 K/uL Eosinophils # (Auto) 0.16 0.00-0.70 K/uL Basophils # (Auto) 0.04 0.00-0.20 K/uL Absolute Immature Granulocyte (auto 0.06 0-1 K/uL Nucleated Red Blood Cells 0.0 0.0-0.19 % Erythrocyte Sedimentation Rate 71 H 0-20 MM/HR Lactic Acid Level 1.9 0.8-2.5 mmol/L Magnesium Level 1.90 1.80-2.40 mg/dL Total Bilirubin 0.9 # 0.2-1.0 mg/dL Aspartate Amino Transf (AST/SGOT) 24 10-37 U/L Alanine Aminotransferase (ALT/SGPT) 33 # 12-78 U/L Alkaline Phosphatase 135 50-136 U/L Total Protein 6.7 6.0-8.3 g/dL Albumin 2.5 #L 3.5-5.0 g/dL Cholesterol Level 324 #H <200 mg/dL LDL Cholesterol 59 0-99 mg/dL HDL Cholesterol 33 L 35-85 mg/dL Amylase Level 34 # 25-115 U/L Lipase 57 16-77 U/L Procalcitonin 0.05 0.05-0.5 ng/mL Thyroid Stimulating Hormone (TSH) 2.88 # 0.36-3.74 uIU/mL Test 09/21/24 23:52 09/21/24 23:40 09/21/24 20:40 09/21/24 20:26 Range/Units Blood Gas Specimen Type Arterial Arterial Blood pH 7.433 7.350-7.450 Arterial Blood Partial Pressure CO2 34 32-45 mmHg Arterial Blood Partial Pressure O2 63.1 L 83.0-108.0 mmHg Arterial Blood HCO3 22.3 21.0-28.0 mmol/L Arterial Blood Oxygen Saturation 91.7 L 94.0-98.0 % Arterial Blood Base Excess -1.4 -2.0-3.0 mmol/L Hemoglobin (Blood Gas) 11.9 L 12.0-16.0 g/dL Sodium (Blood Gas) 137 136-145 MMOL/L Bedside Potassium (Blood Gas) 3.7 3.4-4.5 MMOL/L Bedside Chloride (Blood Gas) 102 98-107 MMOL/L Bedside Glucose (Blood Gas) 294 H 65-95 MG/DL Bedside Ionized Calcium (Blood Gas) 1.12 L 1.15-1.33 MMOL/L Bedside Lactic Acid (Blood Gas) 1.42 H 0.36-0.75 MMOL/L Blood Gas Temperature 37.0 35.5-37.0 CELSIUS Blood Gas Vent Mode RA ROOM AIR FiO2 31.0 % Blood Gas Specimen Comment RN, RB Influenza Type A Antigen Negative For Type A NEGATIVE Influenza Type B Antigen Negative For Type B NEGATIVE SARS-CoV-2, RNA, NAAT NEGATIVE SARS CoV-2 NEGATIVE Group A Streptococcus Rapid negative NEGATIVE Direct Bilirubin 0.1 0.0-0.3 mg/dL Red Blood Cell Morphology See comments Total Creatine Kinase 39 21-232 U/L Troponin I High Sensitivity < 4 L 4-50 ng/L Human Chorionic Gonadotropin, Quant 2 0-5 mIU/mL Test 09/21/24 19:40 Range/Units Urine Color LIGHT-YELLOW YELLOW Urine Appearance CLEAR CLEAR Urine pH 6.5 5.0-8.0 Urine Specific Mozelle 1.031 1.001-1.031 Urine Protein 50 H NEGATIVE mg/dL Urine Glucose (UA) >=1000 H NEGATIVE mg/dL Urine Ketones 20 H NEGATIVE mg/dL Urine Occult Blood +- (TRACE) H NEGATIVE Urine Nitrate NEGATIVE NEGATIVE Urine Bilirubin NEGATIVE NEGATIVE mg/dL Urine Urobilinogen 0.2 0.2-1.0 mg/dL Urine Leukocyte Esterase NEGATIVE NEGATIVE Sunshine/uL Urine RBC 0-1 0-1 /HPF Urine WBC 6-10 H 0-1 /HPF Urine Squamous Epithelial Cells FEW 0-2 /HPF Urine Bacteria RARE None Seen /HPF Urine Opiates Screen NEGATIVE NEGATIVE Urine Barbiturates Screen NEGATIVE NEGATIVE Urine Phencyclidine Screen NEGATIVE NEGATIVE Urine Amphetamines Screen NEGATIVE NEGATIVE Urine Benzodiazepines Screen NEGATIVE NEGATIVE Urine Cocaine Screen POSITIVE H NEGATIVE Urine Marijuana (THC) Screen NEGATIVE NEGATIVE Current Medications Medications (Trade) Dose Ordered Sig/Andrew Route PRN Reason Start Time Stop Time Status Last Admin Dose Admin Ceftriaxone Sodium (ROCEphine 1G INJ) 1 gm BID IVPB 09/22/24 09:00 09/22/24 00:23 DC Dextrose/Sodium Chloride 1,000 ml @ 0 mls/hr AD IV 09/22/24 00:00 10/22/24 00:00 Famotidine (Pepcid 20mg Vial) 20 mg BID IV 09/22/24 09:00 10/22/24 08:59 09/22/24 10:34 20 MG Fenofibrate (Tricor) 145 mg HS PO 09/22/24 21:00 10/22/24 20:59 Insulin Human Regular 100 unit/ Sodium Chloride 100 ml @ 0 mls/hr PROTOCOL IV 09/21/24 23:30 09/22/24 00:08 DC Insulin Human Regular 100 unit/ Sodium Chloride 101 ml @ 0 mls/hr PROTOCOL IV 09/22/24 00:00 10/22/24 00:00 09/22/24 00:16 3.8 MLS/HR Ketorolac Tromethamine (toRADol) 15 mg Q6H PRN IM MODERATE PAIN (4-6) 09/22/24 00:30 09/27/24 00:29 09/22/24 10:58 15 MG Magnesium Sulfate 50 ml @ 0 mls/hr PROTOCOL IV 09/22/24 00:00 10/22/24 00:00 09/22/24 02:05 25 MLS/HR Nicotine (Nicoderm) 7 mg DAILY TD 09/22/24 09:00 10/22/24 08:59 09/22/24 10:34 7 MG Ondansetron HCl (zoFRAN 4MG INJ) 4 mg Q6H PRN IV NAUSEA/VOMITING 09/22/24 00:00 10/22/24 00:00 Piperacillin Sod/ Tazobactam Sod (Zosyn 3.375gm+NS 50ml) 3.375 gm Q8H IV 09/22/24 00:30 10/02/24 00:29 09/22/24 16:30 3.375 GM Potassium Chloride 20 meq/ Sodium Chloride 1,010 ml @ 0 mls/hr PROTOCOL IV 09/22/24 00:00 10/22/24 00:00 Potassium Chloride/Dextrose/ Sod Cl 1,000 ml @ 0 mls/hr AD IV 09/22/24 00:00 10/22/24 00:00 09/22/24 00:20 150 MLS/HR Potassium Chloride/Dextrose/ Sod Cl 1,000 ml @ 0 mls/hr AD IV 09/22/24 00:30 09/22/24 00:08 DC Potassium Chloride 100 ml @ 100 mls/hr AD PRN IV POTASSIUM PROTOCOL 09/22/24 02:00 10/22/24 01:59 09/22/24 03:10 100 MLS/HR Sodium Chloride 1,000 ml @ 200 mls/hr PROTOCOL IV 09/22/24 00:00 10/22/24 00:00 DIAGNOSTICS / RADIOLOGY: [ ] ASSESSMENT: Hypertriglyceridemia induced acute pancreatitis POA Cocaine abuse POA Hyperglycemia due to uncontrolled diabetes POA Hyponatremia due to hyperglycemia POA Hypochloremia POA Sepsis unknown source POA PLAN: pt ok for gen med/surg floor start clears, and home meds (statin, and fenofibrate) We will start patient on Rocephin IV bid for empiric coverage We will start on Famotidine 20 mg IV bid for GI prophylaxis We will add prn medication for fever,pain,cough and nausea Counseled on Cocaine use cessation, though pt denied use We will reconcile home meds once medlist available appreciate critical care recommendations. We will request labs in am Further orders to follow depending on above results SABINE PÉREZ MD Sep 22, 2024 19:16
[2024-09-22] MEDS ORDERED: acetaMINOPHEN WITH coDEINE 1 TAB TAB PO PRN (19:30)
[2024-09-22] MEDS ORDERED: hydrOXYzine 25 MG TABLET PO PRN (19:30)
[2024-09-22] MEDS ORDERED: FENOFIBRATE NANOCRYSTALLIZED 145 MG TAB PO SCH (21:00)
[2024-09-22] MEDS: FENOFIBRATE NANOCRYSTALLIZED 145 MG TAB PO SCH (21:24)
[2024-09-22] MEDS: atorVAStatin 40 MG TABLET PO SCH (21:24)
[2024-09-22 21:26] LABS: CREATININE 0.6 mg/dL (0.5-1.0); POTASSIUM 4.4 mmol/L (3.5-5.1)
[2024-09-22 21:40] LABS: MAGNESIUM 1.7 mg/dL (1.80-2.40)
[2024-09-22] MEDS: acetaMINOPHEN 325 MG TAB ONE (23:33)
[2024-09-23 00:08] LABS: CREATININE 0.6 mg/dL (0.5-1.0); POTASSIUM 3.6 mmol/L (3.5-5.1)
[2024-09-23 04:37] LABS: BASOPHILS # (AUTO) 0.03 K/uL (0.00-0.20); BASOPHILS % (AUTO) 0.3 % (0.0-5.0); EOSINOPHILS # (AUTO) 0.18 K/uL (0.00-0.70); EOSINOPHILS % (AUTO) 1.9 % (0.0-8.0); HEMATOCRIT 31.1 % (36-48); IMMATURE GRANULOCYTE ABSOLUTE 0.04 K/uL (0-1); LYMPHOCYTES # (AUTO) 1.9 K/uL (1.0-4.8); LYMPHOCYTES % (AUTO) 19.4 % (21.0-51.0); MEAN CORPUSCULAR HEMOGLOBIN 30.2 pg (27.0-33.0); MEAN CORPUSCULAR HGB CONC 34.1 g/dL (32.0-36.0); MEAN CORPUSCULAR VOLUME 88.6 fL (79-99); MONOCYTES # (AUTO) 0.4 K/uL (0.1-1.0); MONOCYTES % (AUTO) 4.5 % (3.0-13.0); NEUTROPHILS % (AUTO) 73.5 % (40.0-77.0); PLATELET COUNT (AUTO) 260 K/uL (130-400); RED BLOOD CELL COUNT(AUTO) 3.51 MIL/uL (4.00-5.50); RED CELL DISTRIBUTION WIDTH 12.8 % (11.0-15.5); WHITE BLOOD COUNT (AUTO) 9.5 K/uL (4.8-10.8)
[2024-09-23 05:05] LABS: ALBUMIN 2.4 g/dL (3.5-5.0); BILIRUBIN,TOTAL 0.6 mg/dL (0.2-1.0); CREATININE 0.8 mg/dL (0.5-1.0); POTASSIUM 3.6 mmol/L (3.5-5.1); TOTAL PROTEIN, SERUM 6.6 g/dL (6.0-8.3)
--- NOTE | 2024-09-23 07:15 | NUR ---
SBAR RECIEVED FROM [facility], PT IS AAOX4 NO DISTRESS, NO COMPLAINTS AT THIS TIME
[2024-09-23 08:26] LABS: CREATININE 0.6 mg/dL (0.5-1.0); POTASSIUM 3.6 mmol/L (3.5-5.1)
[2024-09-23] MEDS: amLODIPine 5 MG TAB PO SCH (09:20)
[2024-09-23] MEDS: LISINOPRIL 5 MG TABLET PO SCH (09:20)
[2024-09-23 10:00] VITALS: TEMP 97.5
--- NOTE | 2024-09-23 10:46 | NUR ---
DCP: HOME SW met with pt who is currently staying with her father. Son Pete Farmer [phone] is her ER contact. Pt voiced that she remains independent, drives, completes ADLS and home management on her own. Pt uses no DME or in home care services. Pt is see at [facility] by Radha Spaulding for medical care and meds. Pt denies dc needs and will return home at dc Addendum: 09/23/24 at 1048 by SALEEM MO SS Amended: Links added.
--- NOTE | 2024-09-23 12:00 | NUR ---
DR. DAMIAN AT BEDSIDE ORDERED D/C OF INSULIN DRIP AND ADCANCE DIET, PT DENIES ANY ABD PAIN, NAUSEA, OR VOMITING
[2024-09-23 12:05] VITALS: BP 114/80; PULSE 82; RESP 20; O2SAT 99
[2024-09-23 12:51] LABS: CREATININE 0.7 mg/dL (0.5-1.0); POTASSIUM 3.8 mmol/L (3.5-5.1)
--- NOTE | 2024-09-23 13:30 | NUR ---
DR. DAMIAN ORDERS TO RESUME INSULIN DRIP TO PREVIOUS DOSAGE. PT REFUSING STATES "I WANT TO GO HOME, I FEEL GOOD NOW"
--- NOTE | 2024-09-23 14:01 | NUR ---
DR. DAMIAN MADE AWARE PT LEFT AMA DUE TO [facility], PT STATES " I AM MY FATHERS PROVIDER AND THEY SAID HE IS NOT DOING WELL SO I HAVE TO GO CHECK ON HIM , IF I FEEL WORSE I WILL COME BACK" PT EDUCATED ON LEAVING AMA, LEESA RUSH MADE AWARE.
--- NOTE | 2024-09-23 14:05 | DS ---
Discharge Summary Hospital Course Summary: Patient is a 49-year-old female with past medical history significant for diabetes type 2, pancreatitis, fatty liver, diabetes type 2, hypertriglyceridemia, and a surgical history of tubal ligation, x3, presents to the emergency department complaining of diffuse abdominal pain associated with nausea for two days. Patient reports that for the past two days, she has been experiencing severe abdominal pain rated 8/10 in pain scale associated with nausea without vomiting. Tonight, due to the persistent of the symptoms, patient decided come to the emergency department for further evaluation and treatment. Patient denies fever, chills, vomiting, diarrhea, constipation, dysuria, chest pain, dizziness, or any other symptoms. The workup in the emergency department shows a temperature of 101 0.7 F, heart rate of 99, lactic acid of 3.1, WBC of 14.9, sodium of 119, chloride 84, glucose of 456, triglyceride of 6780, lipase of 104, UA shows UTI. In the emergency department, patient received Zofran 4 mg IV, morphine 2 mg IV, Tylenol 1000 mg p.o. ceftriaxone 1 g IV, NS 1 L bolus. A critical Care has been consulted to help with medical management. 09/22/2024: At the time of my visit, the patient remained in the emergency department awaiting bed assignment. She was awake alert and oriented x4. the patient was on oxygen supplementation via the nasal cannula. On the monitor, she was normotensive without the need for pressor therapy. There was no arrhythmias noted. The patient denied any complaint of chest pain. She denies any nausea vomiting or diarrhea. She did complain of some dysuria. The patient is functional and does not require assistance for ambulation. On laboratory data review today, CBC was unremarkable except for a slightly elevated WBC of 11.7. Chemistry panel did show a sodium of 128, potassium of 3.5, chloride of 94, CO2 of 25, , BUN of 7, creatinine of 0.5 and a glucose of 348. A gap of 11, lactic acid of 1.9, calcium of 8.2, triglyceride of 3412, cholesterol of 324, LDL of 33 and a lipase count of 57. The patient remains on a insulin drip and is on hydration with D five half NS with 20 of K. she is also on empiric antibiotic therapy with IV Zosyn. No new complaint. 09/23/24: The patient signed out against medical advice from the ER. As per the primary nurse the patient does not wish to continue any treatment at this time and is refusing to stay and complete evaluation and disposition. The patient is fully aware of all risks and benefits of leaving against medical advice. Possible benefits include correction of the current medical condition and improvement of symptoms. However, the patient was advised that possible risks of leaving against medical advice include worsening of the current medical condition, including or causing . The patient verbalized understanding of the risks and benefits discussed. Despite this, the patient signed out against medical advice. Statistical Reporting Analyst(s): Pulmonology. Procedure(s): PATIENT: ELY SOLER MR#: [id number] : 1975 SEX: F AGE: 49 LOCATION: [facility] ORDER 23 STATUS: [facility] ER REPORT#: [id number] SERVICE 22 REASON: ABD PAIN/ SEPSIS ORDERING PHYSICIAN: BHARGAVI WETZEL MD PROCEDURE: ABD PEL WO - CT ABDOMEN/PELVIS W/O CONTRAST CT ABDOMEN/PELVIS W/O CONTRAST HISTORY: Abdominal pain COMPARISON: 03/30/2024 TECHNIQUE: Multiple sequential axial images of the abdomen and pelvis were obtained from the dome of the diaphragm through symphysis pubis. Patient was not given contrast through intravenous route. Oral contrast was not given. FINDINGS: No pleural effusion is seen bilaterally. There is no evidence of parenchymal disease or pulmonary nodule of the visualized lower lungs. Degenerative changes of the thoracolumbar spine are present. The heart is not enlarged. Liver measures 24 cm. Fatty changes of liver are noted. Pancreas is enlarged with peripancreatic fat stranding suspicious for acute pancreatitis in the proper clinical setting. The liver, spleen, adrenal glands are unremarkable. There is no evidence of hydronephrosis bilaterally. No evidence of renal stone is seen. Fecal material is seen in the colon. There are normal size retroperitoneal and mesenteric lymph nodes. No ascites is seen. Atherosclerotic changes are present. Pelvic sidewalls are symmetric bilaterally. Bladder is moderately distended. IMPRESSION: 1. Pancreas is enlarged with peripancreatic fat stranding suspicious for acute pancreatitis in the proper clinical setting. Lipase correlation is recommended. CT was performed with one or more following dose reduction techniques: automated exposure control, adjustment of the mA and kv according to patient's size, or use of a iterative reconstruction technique. DICTATED BY: TAMICA BUTTERFIELD MD DATE: 09/21/242224 ELECTRONICALLY SIGNED BY: TAMICA BUTTERFIELD MD DATE: 09/21/242233 Assessment/Plan: ASSESSMENT: Hypertriglyceridemia induced acute pancreatitis POA Cocaine abuse POA Hyperglycemia due to uncontrolled diabetes POA Hyponatremia due to hyperglycemia POA Hypochloremia POA Sepsis unknown source POA PLAN: pt ok for gen med/surg floor start clears, and home meds (statin, and fenofibrate) We will start patient on Rocephin IV bid for empiric coverage We will start on Famotidine 20 mg IV bid for GI prophylaxis We will add prn medication for fever,pain,cough and nausea Counseled on Cocaine use cessation, though pt denied use We will reconcile home meds once medlist available appreciate critical care recommendations. We will request labs in am Further orders to follow depending on above results Home Medications: Active Scripts Acetaminophen with Codeine (Acetaminophen-Cod #3 Tablet) 300 Mg-30 Mg Tablet, 1 EACH PO q8 hour PRN for severe pain, #10 TAB 0 Refills Prov:NADIYA ESPINO NP 03/23/24 Ibuprofen (Ibuprofen) 600 Mg Tablet, 600 MG PO Q6H PRN for PAIN, #20 TAB 0 Refills Prov:NADIYA ESPINO NP 03/23/24 [erythromycinopth .5%] No Conflict Check, 1 APPLIC OD q6 hr for 7 Days, #1 TUBE 0 Refills Prov:NADIYA ESPINO NP 03/23/24 Metformin HCl (Metformin HCl) 1,000 Mg Tablet, 1000 MG PO BID for 30 Days, #60 TAB Prov:AMAN ASHLEY NP 04/25/22 Glimepiride (Glimepiride) 4 Mg Tablet, 4 MG PO DAILY for 30 Days, #30 TAB Prov:AMAN ASHLEY NP 04/25/22 Lisinopril (Lisinopril) 5 Mg Tablet, 5 MG PO DAILY for 30 Days, #30 TAB Prov:AMAN ASHLEY NP 04/25/22 Fenofibrate Nanocrystallized (Tricor) 145 Mg Tablet, 145 MG PO HS for 30 Days, #30 TAB Prov:AMAN ASHLEY NP 04/25/22 Atorvastatin Calcium (LIPITOR) 40 Mg Tablet, 40 MG PO HS for 30 Days, #30 TAB Prov:AMAN ASHLEY BRUISE TRIMMER 04/25/22 Amlodipine Besylate (Norvasc 5Mg Tab) 5 Mg Tablet, 10 MG PO DAILY for 30 Days, #30 TAB Prov:AMAN ASHLEY NP 04/25/22 Reported Medications Hydroxyzine HCl (Hydroxyzine HCl) 25 Mg Tablet, 25 MG PO TID PRN for ANXIETY/AGITATION, TAB 09/14/23 Time spent arranging discharge: 1-30 minutes ATTESTATION BY PHYSICIAN I have seen and examined the patient. I reviewed the documentation, medical decision making, and treatment plan as noted by the resident provider above. I agree with the findings and plan of care. Gelacio Riggs MD, NEHA MD Sep 23, 2024 14:05
--- NOTE | 2024-09-23 14:27 | PN ---
[facility] PROGRESS NOTE Date Patient Seen: Sep 23, 2024 Time of Visit: 14:27 Supervising Physician: Dr. Henriquez Primary Care Physician: Unknown PCP Outpatient Specialists: [ ] Inpatient Consults: Critical care PROBLEM LIST: Acute pancreatitis, POA Acute complicated cystitis, POA Severe sepsis, POA Hypertriglyceridemia in the context of acute pancreatitis, POA Nicotine dependence, POA Diabetes type 2 uncontrolled, POA Cocaine abuse, POA INTERVAL HISTORY: HPI: Patient is a 49-year-old female with past medical history significant for diabetes type 2, pancreatitis, fatty liver, diabetes type 2, hypertriglyceridemia, and a surgical history of tubal ligation, x3, presents to the emergency department complaining of diffuse abdominal pain associated with nausea for two days. Patient reports that for the past two days, she has been experiencing severe abdominal pain rated 8/10 in pain scale associated with nausea without vomiting. Tonight, due to the persistent of the symptoms, patient decided come to the emergency department for further evaluation and treatment. Patient denies fever, chills, vomiting, diarrhea, constipation, dysuria, chest pain, dizziness, or any other symptoms. The workup in the emergency department shows a temperature of 101 0.7 F, heart rate of 99, lactic acid of 3.1, WBC of 14.9, sodium of 119, chloride 84, glucose of 456, triglyceride of 6780, lipase of 104, UA shows UTI. In the emergency department, patient received Zofran 4 mg IV, morphine 2 mg IV, Tylenol 1000 mg p.o. ceftriaxone 1 g IV, NS 1 L bolus. A critical Care has been consulted to help with medical management. 09/22/2024: At the time of my visit, the patient remained in the emergency department awaiting bed assignment. She was awake alert and oriented x4. the patient was on oxygen supplementation via the nasal cannula. On the monitor, she was normotensive without the need for pressor therapy. There was no arrhythmias noted. The patient denied any complaint of chest pain. She denies any nausea vomiting or diarrhea. She did complain of some dysuria. The patient is functional and does not require assistance for ambulation. On laboratory data review today, CBC was unremarkable except for a slightly elevated WBC of 11.7. Chemistry panel did show a sodium of 128, potassium of 3.5, chloride of 94, CO2 of 25, , BUN of 7, creatinine of 0.5 and a glucose of 348. A gap of 11, lactic acid of 1.9, calcium of 8.2, triglyceride of 3412, cholesterol of 324, LDL of 33 and a lipase count of 57. The patient remains on a insulin drip and is on hydration with D five half NS with 20 of K. she is also on empiric antibiotic therapy with IV Zosyn. No new complaint. 09/23/2024: At the time of my visit, the patient remained in the emergency department awaiting bed assignment. She was awake alert and oriented x4. the patient was on room air. On the monitor, she was normotensive without the need for pressor therapy. There was no arrhythmias noted. The patient denied any complaint of chest pain. She denies any nausea vomiting or diarrhea. She is voiding and states she does not recall the last time she moved her bowels. The patient is functional and does not require assistance for ambulation. On laboratory data review today, CBC was unremarkable and WBC count improved to 9.5 from 11.7 yesterday. Chemistry panel did show a improved sodium count of 133, potassium of 3.6, chloride of 97, CO2 of 27, , BUN of 2, creatinine of 0.6 and a glucose of 246. A calcium of 8.2 and a triglyceride of 1798. The patient remains on a insulin drip and is on hydration with D five half NS with 20 of K. She is also on empiric antibiotic therapy with IV Zosyn. No new complaint. REVIEW OF SYSTEMS: 12 point ROS reviewed with patient. Pertinent positives mentioned above. Otherwise negative. PHYSICAL EXAM: GENERAL: alert, weak, awake oriented x 3 HEENT: EOMI, Sclera non icteric, moist mucosa NECK: Supple, no JVD, trachea midline LUNGS: Clear breath sounds bilaterally. No wheezes HEART: Regular rate and rhythm. Normal S1 and S2, without murmurs ABD: Abdomen soft, nontender. Bowel sounds present EXT: No clubbing cyanosis or edema NEURO: Alert and oriented to person, follows commands Vital Signs (last 8hr) Date Time Temp Pulse Resp B/P (MAP) Pulse Ox O2 Delivery O2 Flow Rate FiO2 09/23/24 12:05 82 20 114/80 99 Room Air* 0 21 09/23/24 10:00 97.5 79 20 116/74 98 Room Air* 0 21 09/23/24 08:00 79 20 106/70 96 Room Air* 0 21 09/23/24 07:00 97.5 81 20 98/54 96 Room Air* 0 21 09/23/24 06:32 99.0 85 20 115/74 96 Room Air* 0 21 LABS: Hematology Labs: Test 09/23/24 04:24 09/22/24 06:22 09/21/24 20:26 Range/Units White Blood Count 9.5 4.8-10.8 K/uL Red Blood Count 3.51 L 4.00-5.50 MIL/uL Hemoglobin 10.6 L 12.0-16.0 g/dL Hematocrit 31.1 L 36-48 % Mean Corpuscular Volume 88.6 79-99 fL Mean Corpuscular Hemoglobin 30.2 27.0-33.0 pg Mean Corpuscular Hemoglobin Concent 34.1 32.0-36.0 g/dL Red Cell Distribution Width 12.8 11.0-15.5 % Platelet Count 260 130-400 K/uL Mean Platelet Volume 11.0 H 7.5-10.5 fL Immature Granulocyte % (Auto) 0.4 0-1 % Neutrophils (%) (Auto) 73.5 40.0-77.0 % Lymphocytes (%) (Auto) 19.4 L 21.0-51.0 % Monocytes (%) (Auto) 4.5 3.0-13.0 % Eosinophils (%) (Auto) 1.9 0.0-8.0 % Basophils (%) (Auto) 0.3 0.0-5.0 % Neutrophils # (Auto) 7.0 1.8-7.7 K/uL Lymphocytes # (Auto) 1.9 1.0-4.8 K/uL Monocytes # (Auto) 0.4 0.1-1.0 K/uL Eosinophils # (Auto) 0.18 0.00-0.70 K/uL Basophils # (Auto) 0.03 0.00-0.20 K/uL Absolute Immature Granulocyte (auto 0.04 0-1 K/uL Nucleated Red Blood Cells 0.0 0.0-0.19 % Erythrocyte Sedimentation Rate 71 H 0-20 MM/HR Red Blood Cell Morphology See comments Chemistry Labs: Test 09/23/24 12:15 09/23/24 12:02 09/23/24 04:24 09/22/24 11:31 Range/Units Sodium Level 133 L 136-145 mmol/L Potassium Level 3.8 3.5-5.1 mmol/L Chloride Level 97 L 101-111 mmol/L Carbon Dioxide Level 27 21-32 mmol/L Blood Urea Nitrogen 2 L 7-18 mg/dL Creatinine 0.7 0.5-1.0 mg/dL Glomerular Filtration Rate Calc 107 >90 mL/min Random Glucose 221 H 70-105 mg/dL Total Calcium 8.8 8.5-10.1 mg/dL Whole Blood Glucose 190 H 70-110 MG/DL Magnesium Level 2.00 1.80-2.40 mg/dL Total Bilirubin 0.6 # 0.2-1.0 mg/dL Aspartate Amino Transf (AST/SGOT) 18 10-37 U/L Alanine Aminotransferase (ALT/SGPT) 37 12-78 U/L Alkaline Phosphatase 119 50-136 U/L Total Protein 6.6 6.0-8.3 g/dL Albumin 2.4 L 3.5-5.0 g/dL Triglycerides Level 1798 H 30-200 mg/dL Cholesterol Level 388 H <200 mg/dL LDL Cholesterol 70 0-99 mg/dL HDL Cholesterol 45 35-85 mg/dL Bedside Glucose Comment Notified Nurse Test 09/22/24 06:22 09/21/24 20:40 09/21/24 20:26 Range/Units Lactic Acid Level 1.9 0.8-2.5 mmol/L Amylase Level 34 # 25-115 U/L Lipase 57 16-77 U/L Procalcitonin 0.05 0.05-0.5 ng/mL Thyroid Stimulating Hormone (TSH) 2.88 # 0.36-3.74 uIU/mL Direct Bilirubin 0.1 0.0-0.3 mg/dL Total Creatine Kinase 39 21-232 U/L Troponin I High Sensitivity < 4 L 4-50 ng/L Human Chorionic Gonadotropin, Quant 2 0-5 mIU/mL DIAGNOSTICS / RADIOLOGY RESULTS: [ ] PLAN 09/22/2024: For now, we are going to continue current management for the patient. She is going to remain on the insulin drip and as well we will continue on hydration with D5 half NS +20 of K. The patient was also started on fenofibrate. I am going to request a repeat chemistry with a triglyceride levels to follow the trend. We will repeat surveillance labs in the morning. We will monitor the patient's progress and response to management. We will continue to provide general supportive care, GI and DVT prophylaxis. Further orders per attending MD and hospital course. 09/22/2024: For now, we are going to continue current management for the patient. She is going to remain on the insulin drip and as well we will continue on hydration with D5 half NS +20 of K. The patient was also continues on fenofibrate. We will repeat surveillance labs in the morning. The patient is adamant on wanting to leave today, I will leave that up to the primary team. The of the chest We will monitor the patient's progress and response to management. We will continue to provide general supportive care, GI and DVT prophylaxis. Further orders per attending MD and hospital course. NEURO: Minimize central acting medications as possible. Fall Precautions. Well lighted room through the day and minimize interruptions through the night to prevent acute delirium. PULMONARY: Supplemental 02 as needed Titrate Fio2 to keep Spo2 > or = 90% DuoNebs and CPT as needed IS hourly while awake for pulmonary hygiene Out of bed to chair as tolerated CARDIOVASCULAR: Follow hemodynamics. Titrate vasopressor to keep MAP >65 or systolic blood pressure >95mmHg DIPS: Insulin drip LINES: PIVs GI & NUTRITION: Keep patient NPO except medications Aspirations precautions Prokinetic agents and laxatives as needed KIDNEYS & ELECTROLYTES: Strict monitoring of intake and output Daily weights Avoid nephrotoxic agents Monitor electrolytes and replace as needed Goal urine output of 30mL/hr or 0.5mL/kg/hr Urine output: [ ] Fluid Balance: [ ] ENDOCRINE: Maintain blood glucose between 100-180 at all times. Continue insulin drips INFECTIOUS DISEASE: Trend temperature. العراقي-culture if febrile. Micro: Urine culture in process. Antibiotics: Zosyn 3.375 g IV every 8 hours HEMATOLOGY & COAGULATION: Monitor H&H. Keep Hgb > 7 Transfuse 1 unit of PRBC for Hgb < 7 Transfuse 1 pack of platelets of platelets < 20, 000 Watch for any signs and symptoms of bleeding SKIN: Pressure ulcer prevention per facility protocol Rehab: PT/OT Prophylaxis: GI: [Famotidine ] DVT: [SCDs] Code Status: Full Resuscitation Disposition: ICU Other: Total patient care time exceeds 35 minutes excluding all procedures. Case was discussed and seen with my supervising physician. The above plan was formulated and agreed upon. JENNIFER YAN NP Sep 23, 2024 14:27
== END 2024-09-23 13:45 | disposition left against medical advice (07) | DRG 871 ==
LOC: EDH 19:06 → EDHIP 19:07
PROVIDERS: ADMIT Internal Medicine Sleep Medicine; ATTEND Internal Medicine Sleep Medicine
DX: A41.9 Sepsis, unspecified organism (principal); K85.80 Other acute pancreatitis without necrosis or infection; N30.00 Acute cystitis without hematuria; E87.1 Hypo-osmolality and hyponatremia; Z53.29 Procedure and treatment not carried out because of patient's decision for other reasons; R65.20 Severe sepsis without septic shock; K76.0 Fatty (change of) liver, not elsewhere classified; E11.65 Type 2 diabetes mellitus with hyperglycemia; E78.00 Pure hypercholesterolemia, unspecified; E78.1 Pure hyperglyceridemia; E87.8 Other disorders of electrolyte and fluid balance, not elsewhere classified; F14.10 Cocaine abuse, uncomplicated; F17.210 Nicotine dependence, cigarettes, uncomplicated; I10 Essential (primary) hypertension; Z98.51 Tubal ligation status; Z83.3 Family history of diabetes mellitus; Z82.49 Family history of ischemic heart disease and other diseases of the circulatory system; Z79.899 Other long term (current) drug therapy
CPT/HCPCS: 36415; 36600; 74176; 80048; 80053; 80061; 80076; 80305; 81001; 82150; 82435; 82550; 82803; 82947; 82948; 83605; 83690; 83735; 84132; 84145; 84295; 84443; 84478; 84484; 84702; 85018; 85025; 85651; 87040; 87086; 87186; 87635; 87804; 87880; 93005; 96365; 96375; 99291; G0378; J0696; J1815; J1885; J2270; J2405; J2543; J3475; J3480; J3490; J7030